=== PATIENT | male | born 1990 | race Hispanic/Latino ===

== ENCOUNTER 2020-05-31 00:21 | Emergency (ER) | payer SELFPAY ==
[~2020-05-31] VITALS: Ht 170.2 cm; Wt 87.1 kg
[2020-05-31] MEDS ORDERED: FAMOTIDINE 20 MG TAB PO STA (00:31)
[2020-05-31] MEDS ORDERED: PREDNISONE 20 MG TAB PO STA (00:31)
--- NOTE | 2020-05-31 00:33 | Emergency Department Note ---
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 Arrival Mode: Car Sock Mender Required: No Onset (how long ago): minute(s) (30) Radiation: Reports non-radiation Severity: mild Onset quality: sudden Duration (how long): hour(s) (1) Timing of current episode: constant Progression: unchanged Chronicity: new Relieving factors: none Exacerbating factors: none Associated symptoms: Reports denies other symptoms Treatments prior to arrival: none Past Medical/Family History Physician Review I have reviewed the patient's past medical and family history. Any updates have been documented here. Past Medical History Recent Fever: No Clinical Suspicion of Infectio: No New/Unexplained Change in Ment: No Past Medical History: Hypertension Past Surgical History: None Social History Smoking Cessation: Never Smoker Alcohol Use: None Any Illegal Drug Use: No Review of Systems Review of Systems Constitutional: Reports no symptoms EENTM: Reports no symptoms Cardiovascular: Reports no symptoms Respiratory: Reports no symptoms Gastrointestinal: Reports no symptoms Genitourinary: Reports no symptoms Musculoskeletal: Reports no symptoms Integumentary: Reports no symptoms Neurological: Reports tingling Psychological: Reports no symptoms Endocrine: Reports no symptoms Hematological/Lymphatic: Reports no symptoms Physical Exam Related Data Allergies: Coded Allergies: No Known Allergies (Unverified , 05/31/20) Physical Exam CONSTITUTIONAL Constitutional: Present well-developed, Present well-nourished HENT HENT: Present normocephalic, Present atraumatic, Present oropharynx keren r/moist, Present nose normal HENT L/R: Present left ext ear normal, Present right ext ear normal EYES Eyes: Reports PERRL, Reports conjunctivae normal NECK Neck: Present ROM normal PULMONARY Pulmonary: Present effort normal, Present breath sounds normal CARDIOVASCULAR Cardiovascular: Present regular rhythm, Present heart sounds normal, Present capillary refill normal, Present normal rate GASTROINTESTINAL Abdominal: Present soft, Present nontender, Present bowel sounds normal GENITOURINARY Genitourinary: Present exam deferred SKIN Skin: Present warm, Present dry MUSCULOSKELETAL Musculoskeletal: Present ROM normal NEUROLOGICAL Neurological: Present alert, Present oriented x 3, Present no gross motor or sensory deficits PSYCHOLOGICAL Psychological: Present mood/affect normal, Present judgement normal Assessment & Plan Medical Decision Making MDM Diff Dx : angioedema, allergic reaction Assessment & Plan Final Impression: (1) Allergic reaction Depart Disposition: HOME, SELF-CARE ELMA MCKEON DO May 31, 2020 00:33
[2020-05-31] MEDS ORDERED: DIPHENHYDRAMINE HCL 25 MG CAP PO ONE (00:45)
--- NOTE | 2020-05-31 01:45 | NUR ---
PT STATES TINGLING IN TONGUE AND FACE HAVE DECREASED. NAD NOTED AT THIS TIME. RESP EVEN/UNLABORED.
[2020-05-31 02:15] VITALS: BP 125/79
--- OUTSIDE RECORDS SUMMARY | 2020-05-31 02:21 | XMS REPORT | Continuity of Care Document ---
Author Author [facility] t Organization [facility] Address [address] [place] [address] Phone Unavailable Care Team Providers Care Mobile Homes Repairer Name Role Phone Unavailable Unavailable Payers Payer Name Policy Type Policy Number Effective Date Expiration Date S ource Problems This patient has no known problems. Allergies, Adverse Reactions, Alerts Allergy Name Allergy Type Status Severity Reaction(s) Onset Date Inacti ve Date Treating Clinician Comments Source No Known Allergies DA Active U 2020-05-30 00:00:00 [facility] No Known Allergies DA Active U 2020-05-24 00:00:00 [facility] No Known Allergies DA Active U 2020-05-21 00:00:00 [facility] No Known Allergies DA Active U 2020-05-20 00:00:00 [facility] Medications This patient has no known medications. Procedures This patient has no known procedures. Encounters Start Date/Time End Date/Time Encounter Type Admission Type [facility] Care Department Encounter ID Source 2020-05-29 02:17:00 2020-05-29 02:17:00 Emergency E [facility] [id number] [facility] 2020-05-28 17:59:00 2020-05-28 17:59:00 Emergency E [facility]SE [facility] [id number] [facility] 2020-05-25 01:40:00 2020-05-25 01:40:00 Emergency E [facility]SE [facility]SE [id number] [facility] 2020-05-23 01:20:00 2020-05-23 01:20:00 Emergency E [facility]SE [facility]SE [id number] [facility] 2020-05-22 01:00:00 2020-05-22 01:00:00 Emergency E [facility]SE [facility]SE [id number] [facility] 2020-05-19 17:53:00 2020-05-19 17:53:00 Emergency E MHSE [facility]SE [id number] [facility] 2020-05-18 19:03:00 2020-05-18 19:03:00 Emergency E [facility]SE [facility]SE [id number] [facility] 2020-05-17 20:10:00 2020-05-17 20:10:00 Emergency E MHSE [facility]SE [id number] [facility] 2020-05-16 23:43:00 2020-05-16 23:43:00 Emergency E MHSE [facility]SE [id number] [facility] 2020-05-14 01:59:00 2020-05-14 01:59:00 Emergency E MHSE [facility]SE [id number] [facility] 2020-04-30 10:21:00 2020-04-30 10:21:00 Emergency E [facility]SE [facility]SE [id number] [facility] 2020-04-22 01:29:00 2020-04-22 01:29:00 Emergency E [facility]SE SE [id number] [facility] Results Test Description Test Time Test Comments Results Result Comments Source BASIC METABOLIC PANEL 2020-05-23 22:35:00 Test Item SODIUM (test code = NA) 142 mmol/L 136-145 N POTASSIUM (test code = K) 3.7 mmol/L 3.5-5.1 N CHLORIDE (test code = CL) 111.0 mmol/L 98-107 H CARBON DIOXIDE (test code = CO2) 26.0 mmol/L 21-32 N ANION GAP (test code = GAP) 8.7 10-20 L GLUCOSE (test code = GLU) 100 mg/dL 74-106 N BLOOD UREA NITROGEN (test code = BUN) 11 mg/dL 7-18 N GLOMERULAR FILTRATION RATE (test code = GFR) > 60 mL/min >=60 Estimated GFR by using Modified MDRD formula.Chronic kidney disease is defined as either kidney damageor GFR <60 mL/min/1.73 m2 for >3 months. CREATININE (test code = CREAT) 1.10 mg/dL 0.7-1.3 N BUN/CREATININE RATIO (test code = BUN/CREA) 10.1 10-20 N CALCIUM (test code = CA) 8.8 mg/dL 8.5-10.1 N HEPATIC FUNCTION [id number] 22:35:00* Test Item Value Reference Range Interpretation Comments TOTAL PROTEIN (test code = PROT) 7.4 gram/dL 6.4-8.2 N ALBUMIN (test code = ALB) 3.3 g/dL 3.4-5.0 L GLOBULIN (test code = GLOB) 4.1 gram/dL 2.7-4.2 N ALBUMIN/GLOBULIN RATIO (test code = A/G) 0.8 0.75-1.50 N BILIRUBIN TOTAL (test code = BILT) 0.60 mg/dL 0.0-1.0 N BILIRUBIN DIRECT (test code = BILD) 0.14 mg/dL 0.0-0.20 N SGOT/AST (test code = AST) 30 IUnit/L 15-37 N SGPT/ALT (test code = ALT) 79 IUnit/L 12-78 H ALKALINE PHOSPHATASE TOTAL (test code = ALKP) 72 IUnit/L 45-117 N Note change in reference range due to change in reagent. [id number] 22:35:00* Test Item Value Reference Range Interpretation Comments LIPASE (test code = LIP) 189 U/L 73.0-393.0 N BASIC METABOLIC [id number] 22:25:00* Test Item Value Reference Range Interpretation Comments SODIUM (test code = NA) 142 mmol/L 136-145 N POTASSIUM (test code = K) 3.7 mmol/L 3.5-5.1 N CHLORIDE (test code = CL) 111.0 mmol/L 98-107 H CARBON DIOXIDE (test code = CO2) mmol/L 21-32 ANION GAP (test code = GAP) 10-20 GLUCOSE (test code = GLU) mg/dL 74-106 BLOOD UREA NITROGEN (test code = BUN) mg/dL 7-18 GLOMERULAR FILTRATION RATE (test code = GFR) mL/min >=60 CREATININE (test code = CREAT) mg/dL 0.7-1.3 BUN/CREATININE RATIO (test code = BUN/CREA) 10-20 CALCIUM (test code = CA) mg/dL 8.5-10.1 HEPATIC FUNCTION [id number] 22:25:00* Test Item Value Reference Range Interpretation Comments TOTAL PROTEIN (test code = PROT) gram/dL 6.4-8.2 ALBUMIN (test code = ALB) g/dL 3.4-5.0 GLOBULIN (test code = GLOB) gram/dL 2.7-4.2 ALBUMIN/GLOBULIN RATIO (test code = A/G) 0.75-1.50 BILIRUBIN TOTAL (test code = BILT) mg/dL 0.0-1.0 BILIRUBIN DIRECT (test code = BILD) mg/dL 0.0-0.20 SGOT/AST (test code = AST) IUnit/L 15-37 SGPT/ALT (test code = ALT) IUnit/L 12-78 ALKALINE PHOSPHATASE TOTAL (test code = ALKP) IUnit/L 45-117 [id number] 22:25:00* Test Item Value Reference Range Interpretation Comments LIPASE (test code = LIP) U/L 73.0-393.0 CBC W/O [id number] 22:09:00* Test Item Value Reference Range Interpretation Comments WHITE BLOOD CELL (test code = WBC) K/mm3 4.5-12.5 RED BLOOD CELL (test code = RBC) mill/mm3 4.0-5.8 HEMOGLOBIN (test code = HGB) 14.2 gram/dL 13.0-17.5 N HEMATOCRIT (test code = HCT) % 42.0-52.0 MEAN CELL VOLUME (test code = MCV) fL 80-98 MEAN CELL HGB (test code = MCH) picogram 27.0-33.0 MEAN CELL HGB CONCETRATION (test code = MCHC) gram/dL 33.0-36. 0 RED CELL DISTRIBUTION WIDTH (test code = RDW) % 11.6-16. 2 PLATELET COUNT (test code = PLT) 200 K/mm3 150-450 N MEAN PLATELET VOLUME (test code = MPV) fL 6.7-11.0 CBC W/O [id number] 22:09:00* Test Item Value Reference Range Interpretation Comments WHITE BLOOD CELL (test code = WBC) 5.8 K/mm3 4.5-12.5 N RED BLOOD CELL (test code = RBC) 4.62 mill/mm3 4.0-5.8 N HEMOGLOBIN (test code = HGB) 14.2 gram/dL 13.0-17.5 N HEMATOCRIT (test code = HCT) 40.3 % 42.0-52.0 L MEAN CELL VOLUME (test code = MCV) 87.2 fL 80-98 N MEAN CELL HGB (test code = MCH) 30.7 picogram 27.0-33.0 N MEAN CELL HGB CONCETRATION (test code = MCHC) 35.2 gram/dL 33.0-36. 0 N RED CELL DISTRIBUTION WIDTH (test code = RDW) 12.4 % 11.6-16. 2 N PLATELET COUNT (test code = PLT) 200 K/mm3 150-450 N MEAN PLATELET VOLUME (test code = MPV) 11.7 fL 6.7-11.0 H - CT ABD PELVIS [id number] 22:05:00 Name: SANYA KABA [facility] : 1990 Age/S: 29 / M [address] [facility] Unit #: [id number] Loc: [place] [address] Phys: Brian Page MD Acct: [id number] Dis Date: Status: REG ER PHONE #: [phone] Exam Date: 05/23/2020 2200 FAX #: [phone] Reason: abd pain and bloating after endoscopy EXAMS: CPT CODE: [id number] CT ABD PELVIS W/CONT 94220 REASON FOR EXAM: abd pain and bloating after endoscopy EXAM ORDER DATE: 05/23/2020 9:36 PM Ordering: Brian Page MD Attending:Brian Page MD Location:[facility] PROCEDURE: - CT ABD PELVIS W/CONT COMPARISON: FINDINGS: CT images of the abdomen and pelvis were obtained with IV and without oral contrast at 5mm. Dose modulation, iterative reconstruction, and/or weight based adjustment of the MA/KV was utilized to reduce the radiation dose to as low as reasonably achievable. Intravenous contrast: 100cc of Omnipaque 370. The liver, spleen, pancreas are grossly within normal limits. The gallbladder is unremarkable by CT The kidneys are within normal limits. The urinary bladder is minimally distended The colon and small bowel are within normal limits without evidence of obstruction. Minimal calcification of a normal caliber appendix, a nonspecific finding suggestive of appendicolith. No evidence of associated inflammation benavides ggest acute appendicitis No evidence of free air or free fluid. IMPRESSION: Nonspecific minimal distention of the stomach with food debris. No evidence of bowel dilatation, free air, or free fluid at 2205 Reported and signed by: Khadar Ovalle M.D. PAGE 1 Signed Report (CONTINUED) Name: SANYA KABA [facility] : 1990 Age/S: 29 / M [address] Unit #: [id number] Loc: [place] [address] Phys: Brian Page MD Acct: [id number] Dis Date: Status: REG ER PHONE #: [phone] Exam Date: 05/23/20202199 FAX #: [phone] Reason: abd pain and bloating after endoscopy EXAMS: CPT CODE: [id number] CT ABD PELVIS W/CONT 30848 <Continued> CC: Brian Pgae MD Technologist:Chey Kaye RT(R); SAMIR Cotton CTDI: DLP: Trnscb Date/Time: 05/23/2020 (2204) [email or web address] Orig Print D/T: S: 05/23/2020 (2207) PAGE 2 Signed Report - XR CHEST 1 [id number] 21:37:00 FAX: Brian England [phone] [place]: St: REG Name: SANYA MONTAGUE [facility] : [birth year] Age/S: 29/M [address] Unit #: [id number] Loc: [place] [address] Phys: Brian Page MD Acct: [id number] Dis Date: Status: REG ER PHONE #: [phone] Exam Date: 05/23/20202134 FAX #: [phone] Reason: ABDOMINAL PAIN EXAMS: CPT CODE: [id number] XR CHEST 1 V 62143 REASON FOR EXAM: ABDOMINAL PAIN EXAM ORDER DATE: 05/23/2020 9:16 PM Ordering: Paris Page MD Attending:Brian Page MD Location:[facility] PROCEDURE: - XR CHEST 1 V COMPARISON: F INDINGS: Portable AP frontal view of the chest obtained at 9:30 PM shows clear lungs without evidence of consolidation. There is no evidence of eff usion. The heart size is within normal limits. Pulmonary vasculatures are unremarkable. IMPRESSION: No active disease. Electr onically Signed by Zhen Ovalle on 05/23/2020 at 2136 Re ported and signed by: Khadar Ovalle M.D. CC: Brian Page Technologist: [facility] Date/Time/By: 05/23/2020 (2136) : By: CaitlynVTL Orig Print D/T: S: 05/23/2020 (2139) PAGE 1 Signed Report BASIC METABOLIC [id number] 22:01:00* Test Item Value Reference Range Interpretation Comments SODIUM (test code = NA) 141 mmol/L 136-145 N POTASSIUM (test code = K) 3.6 mmol/L 3.5-5.1 N CHLORIDE (test code = CL) 109.0 mmol/L 98-107 H CARBON DIOXIDE (test code = CO2) 25.0 mmol/L 21-32 N ANION GAP (test code = GAP) 10.6 10-20 N GLUCOSE (test code = GLU) 103 mg/dL 74-106 N BLOOD UREA NITROGEN (test code = BUN) 10 mg/dL 7-18 N GLOMERULAR FILTRATION RATE (test code = GFR) > 60 mL/min >=60 Estimated GFR by using Modified MDRD formula.Chronic kidney disease is defined as either kidney damageor GFR <60 mL/min/1.73 m2 for >3 months. CREATININE (test code = CREAT) 0.90 mg/dL 0.7-1.3 N BUN/CREATININE RATIO (test code = BUN/CREA) 10.7 10-20 N CALCIUM (test code = CA) 8.5 mg/dL 8.5-10.1 N HEPATIC FUNCTION [id number] 22:01:00* Test Item Value Reference Range Interpretation Comments TOTAL PROTEIN (test code = PROT) 7.3 gram/dL 6.4-8.2 N ALBUMIN (test code = ALB) 3.3 g/dL 3.4-5.0 L GLOBULIN (test code = GLOB) 4.0 gram/dL 2.7-4.2 N ALBUMIN/GLOBULIN RATIO (test code = A/G) 0.8 0.75-1.50 N BILIRUBIN TOTAL (test code = BILT) 0.60 mg/dL 0.0-1.0 N BILIRUBIN DIRECT (test code = BILD) 0.12 mg/dL 0.0-0.20 N SGOT/AST (test code = AST) 28 IUnit/L 15-37 N SGPT/ALT (test code = ALT) 72 IUnit/L 12-78 N ALKALINE PHOSPHATASE TOTAL (test code = ALKP) 74 IUnit/L 45-117 N Note change in reference range due to change in reagent. [id number] 22:01:00* Test Item Value Reference Range Interpretation Comments LIPASE (test code = LIP) 167 U/L 73.0-393.0 N BASIC METABOLIC [id number] 21:54:00* Test Item Value Reference Range Interpretation Comments SODIUM (test code = NA) 141 mmol/L 136-145 N POTASSIUM (test code = K) 3.6 mmol/L 3.5-5.1 N CHLORIDE (test code = CL) 109.0 mmol/L 98-107 H CARBON DIOXIDE (test code = CO2) mmol/L 21-32 ANION GAP (test code = GAP) 10-20 GLUCOSE (test code = GLU) mg/dL 74-106 BLOOD UREA NITROGEN (test code = BUN) mg/dL 7-18 GLOMERULAR FILTRATION RATE (test code = GFR) mL/min >=60 CREATININE (test code = CREAT) mg/dL 0.7-1.3 BUN/CREATININE RATIO (test code = BUN/CREA) 10-20 CALCIUM (test code = CA) mg/dL 8.5-10.1 HEPATIC FUNCTION [id number] 21:54:00* Test Item Value Reference Range Interpretation Comments TOTAL PROTEIN (test code = PROT) gram/dL 6.4-8.2 ALBUMIN (test code = ALB) g/dL 3.4-5.0 GLOBULIN (test code = GLOB) gram/dL 2.7-4.2 ALBUMIN/GLOBULIN RATIO (test code = A/G) 0.75-1.50 BILIRUBIN TOTAL (test code = BILT) mg/dL 0.0-1.0 BILIRUBIN DIRECT (test code = BILD) mg/dL 0.0-0.20 SGOT/AST (test code = AST) IUnit/L 15-37 SGPT/ALT (test code = ALT) IUnit/L 12-78 ALKALINE PHOSPHATASE TOTAL (test code = ALKP) IUnit/L 45-117 [id number] 21:54:00* Test Item Value Reference Range Interpretation Comments LIPASE (test code = LIP) U/L 73.0-393.0 CBC W/O [id number] 21:51:00* Test Item Value Reference Range Interpretation Comments WHITE BLOOD CELL (test code = WBC) 6.2 K/mm3 4.5-12.5 N RED BLOOD CELL (test code = RBC) 4.49 mill/mm3 4.0-5.8 N HEMOGLOBIN (test code = HGB) 13.8 gram/dL 13.0-17.5 N HEMATOCRIT (test code = HCT) 39.3 % 42.0-52.0 L MEAN CELL VOLUME (test code = MCV) 87.5 fL 80-98 N MEAN CELL HGB (test code = MCH) 30.7 picogram 27.0-33.0 N MEAN CELL HGB CONCETRATION (test code = MCHC) 35.1 gram/dL 33.0-36. 0 N RED CELL DISTRIBUTION WIDTH (test code = RDW) 12.2 % 11.6-16. 2 N PLATELET COUNT (test code = PLT) 189 K/mm3 150-450 N MEAN PLATELET VOLUME (test code = MPV) 12.0 fL 6.7-11.0 H CBC W/O [id number] 21:49:00* Test Item Value Reference Range Interpretation Comments WHITE BLOOD CELL (test code = WBC) K/mm3 4.5-12.5 RED BLOOD CELL (test code = RBC) mill/mm3 4.0-5.8 HEMOGLOBIN (test code = HGB) 13.8 gram/dL 13.0-17.5 N HEMATOCRIT (test code = HCT) % 42.0-52.0 MEAN CELL VOLUME (test code = MCV) fL 80-98 MEAN CELL HGB (test code = MCH) picogram 27.0-33.0 MEAN CELL HGB CONCETRATION (test code = MCHC) gram/dL 33.0-36. 0 RED CELL DISTRIBUTION WIDTH (test code = RDW) % 11.6-16. 2 PLATELET COUNT (test code = PLT) 189 K/mm3 150-450 N MEAN PLATELET VOLUME (test code = MPV) fL 6.7-11.0 - CT HEAD/BRAIN W/O [id number] 13:44:00 Name: SANYA KABA [facility] : 1990 Age/S: 29 / M [address] [facility] Unit #: [id number] Loc: [place] [address] Phys: Sandrita Hernandez NP Acct: [id number] Dis Date: Status: REG ER PHONE #: [phone] Exam Date: 05/21/2020 1315 FAX #: [phone] Reason: headache, dizzines EXAMS: CPT CODE: [id number] CT HEAD/BRAIN W/O CONT 91279 HISTORY: headache, dizzines TECHNIQUE: Noncontrast 2.[address] of the head. Examination acquired within 24 hours of arrival. Automated exposure control for dose reduction. COMPARISON: None FINDINGS: No lacerations or contusions of the scalp or facial soft tissues. Calvarium and skull base are intact. No acute hemorrhage. No intracranial mass, mass effect, or midline shift. No effacement of the sulci or decker-white matter interface. No cortical atrophy. No signs of white matter small- vessel disease. No hydrocephalus.. No extra-axial fluid collection. Visualized paranasal sinuses are clear. Mastoid air cells and middle ear cavities are clear. Orbital contents are unremarkable. IMPRESSION: Negative CT head. Location: [facility] at 1344 Reported and signed by: Carlos Stoner MD CC: Sandrita Hernandez NP Technologist:Clementina Palomino RT(R),CT CTDI: DLP: Trnscb Date/Time: 05/21/2020 (1344) [email or web address] Orig Print D/T: S: 05/21/2020 (3865) PAGE 1 Signed Report COMPREHENSIVE METABOLIC [id number] 13:34:00* Test Item Value Reference Range Interpretation Comments SODIUM (test code = NA) 139 mmol/L 136-145 N POTASSIUM (test code = K) 3.9 mmol/L 3.5-5.1 N CHLORIDE (test code = CL) 108.0 mmol/L 98-107 H CARBON DIOXIDE (test code = CO2) 25.0 mmol/L 21-32 N ANION GAP (test code = GAP) 9.9 10-20 L GLUCOSE (test code = GLU) 157 mg/dL 74-106 H BLOOD UREA NITROGEN (test code = BUN) 10 mg/dL 7-18 N GLOMERULAR FILTRATION RATE (test code = GFR) > 60 mL/min >=60 Estimated GFR by using Modified MDRD formula.Chronic kidney disease is defined as either kidney damageor GFR <60 mL/min/1.73 m2 for >3 months. CREATININE (test code = CREAT) 1.00 mg/dL 0.7-1.3 N BUN/CREATININE RATIO (test code = BUN/CREA) 10.3 10-20 N TOTAL PROTEIN (test code = PROT) 7.3 gram/dL 6.4-8.2 N ALBUMIN (test code = ALB) 3.2 g/dL 3.4-5.0 L GLOBULIN (test code = GLOB) 4.1 gram/dL 2.7-4.2 N ALBUMIN/GLOBULIN RATIO (test code = A/G) 0.8 0.75-1.50 N CALCIUM (test code = CA) 8.7 mg/dL 8.5-10.1 N BILIRUBIN TOTAL (test code = BILT) 0.70 mg/dL 0.0-1.0 N SGOT/AST (test code = AST) 32 IUnit/L 15-37 N SGPT/ALT (test code = ALT) 84 IUnit/L 12-78 H ALKALINE PHOSPHATASE TOTAL (test code = ALKP) 73 IUnit/L 45-117 N Note change in reference range due to change in reagent. COMPREHENSIVE METABOLIC [id number] 13:26:00* Test Item Value Reference Range Interpretation Comments SODIUM (test code = NA) 139 mmol/L 136-145 N POTASSIUM (test code = K) 3.9 mmol/L 3.5-5.1 N CHLORIDE (test code = CL) 108.0 mmol/L 98-107 H CARBON DIOXIDE (test code = CO2) mmol/L 21-32 ANION GAP (test code = GAP) 10-20 GLUCOSE (test code = GLU) mg/dL 74-106 BLOOD UREA NITROGEN (test code = BUN) mg/dL 7-18 GLOMERULAR FILTRATION RATE (test code = GFR) mL/min >=60 CREATININE (test code = CREAT) mg/dL 0.7-1.3 BUN/CREATININE RATIO (test code = BUN/CREA) 10-20 TOTAL PROTEIN (test code = PROT) gram/dL 6.4-8.2 ALBUMIN (test code = ALB) g/dL 3.4-5.0 GLOBULIN (test code = GLOB) gram/dL 2.7-4.2 ALBUMIN/GLOBULIN RATIO (test code = A/G) 0.75-1.50 CALCIUM (test code = CA) mg/dL 8.5-10.1 BILIRUBIN TOTAL (test code = BILT) mg/dL 0.0-1.0 SGOT/AST (test code = AST) IUnit/L 15-37 SGPT/ALT (test code = ALT) IUnit/L 12-78 ALKALINE PHOSPHATASE TOTAL (test code = ALKP) IUnit/L 45-117 CBC W/AUTO [id number] 13:15:00* Test Item Value Reference Range Interpretation Comments WHITE BLOOD CELL (test code = WBC) 4.7 K/mm3 4.5-12.5 N RED BLOOD CELL (test code = RBC) 4.80 mill/mm3 4.0-5.8 N HEMOGLOBIN (test code = HGB) 14.7 gram/dL 13.0-17.5 N HEMATOCRIT (test code = HCT) 42.3 % 42.0-52.0 N MEAN CELL VOLUME (test code = MCV) 88.1 fL 80-98 N MEAN CELL HGB (test code = MCH) 30.6 picogram 27.0-33.0 N MEAN CELL HGB CONCETRATION (test code = MCHC) 34.8 gram/dL 33.0-36. 0 N RED CELL DISTRIBUTION WIDTH (test code = RDW) 12.2 % 11.6-16. 2 N RED CELL DISTRIBUTION WIDTH SD (test code = RDW-SD) 39.2 fL 37 .0-51.0 N PLATELET COUNT (test code = PLT) 191 K/mm3 150-450 N MEAN PLATELET VOLUME (test code = MPV) 11.9 fL 6.7-11.0 H NEUTROPHIL % (test code = NT%) 55.9 % 39.0-69.0 N IMMATURE GRANULOCYTE % (test code = IG%) 0.2 % 0.0-5.0 N LYMPHOCYTE % (test code = LY%) 34.2 % 25.0-55.0 N MONOCYTE % (test code = MO%) 7.4 % 0.0-10.0 N EOSINOPHIL % (test code = EO%) 1.7 % 0.0-5.0 N BASOPHIL % (test code = BA%) 0.6 % 0.0-1.0 N NUCLEATED RBC % (test code = NRBC%) 0.0 % 0-0 N NEUTROPHIL # (test code = NT#) 2.63 K/mm3 1.8-7.7 N IMMATURE GRANULOCYTE # (test code = IG#) 0.01 x10 3/uL 0-0.03 N LYMPHOCYTE # (test code = LY#) 1.61 K/mm3 1.0-5.0 N MONOCYTE # (test code = MO#) 0.35 K/mm3 0-0.8 N EOSINOPHIL # (test code = EO#) 0.08 K/mm3 0.0-0.5 N BASOPHIL # (test code = BA#) 0.03 K/mm3 0.0-0.2 N NUCLEATED RBC # (test code = NRBC#) 0.00 K/mm3 0.0-0.1 N URINALYSIS [id number] 19:53:00* Test Item Value Reference Range Interpretation Comments UA COLOR (test code = COLU) STRAW YELLOW UA APPEARANCE (test code = APPU) CLEAR CLEAR UA GLUCOSE DIPSTICK (test code = DGLUU) NEGATIVE mg/dL NEGATIVE UA BILIRUBIN DIPSTICK (test code = BILU) NEGATIVE mg/dL NEGATIVE UA KETONE DIPSTICK (test code = KETU) NEGATIVE mg/dL NEGATIVE UA SPECIFIC GRAVITY (test code = SGU) 1.004 1.001-1.035 UA BLOOD DIPSTICK (test code = CARLOS) Negative mg/dL NEGATIVE UA PH DIPSTICK (test code = YOMAIRA) 6.0 5.0-8.0 UA PROTEIN DIPSTICK (test code = PROU) NEGATIVE mg/dL NEGATIVE UA UROBILINIOGEN DIPSTICK (test code = URO) Normal mg/dL NEGATIVE UA NITRITE DIPSTICK (test code = ISRRAEL) NEGATIVE NEGATIVE UA LEUKOCYTE ESTERASE W REFLEX (test code = LEUUR) NEGATIVE Stephanie/uL NEGATIVE UA WBC (test code = WBCU) 0-5 per HPF 0-5 UA RBC (test code = RBCU) 0-2 #/HPF 0-5 UA EPITHELIAL CELLS (test code = EPIU) Rare (0-1/hpf) per HPF FEW UA BACTERIA (test code = BACU) NONE SEEN #/HPF NONE UA MUCUS (test code = MUCU) FEW #/LPF FEW Urine Source? Clean CatchDRUGS OF ABUSE SCREEN [id number] 19:53:00* Test Item Value Reference Range Interpretation Comments URN COCAINE (test code = COCAURN) NEGATIVE <300 ng/mL URN CANNABINOIDS (test code = CANNABURN) NEGATIVE <50 ng/mL URN AMPHETAMINE (test code = AMPHETURN) NEGATIVE <1000 ng/mL URN BARBITURATE (test code = BARBITURN) NEGATIVE <200 ng/mL URN BENZODIAZEPINE (test code = BENZOURN) NEGATIVE <200 ng/mL URN OPIATES (test code = OPIATURN) NEGATIVE <300 ng/mL URN PHENCYCLIDINE (PCP) (test code = PHENCURN) NEGATIVE <25 ng/ mL URN METHADONE (test code = METHAURN) NEGATIVE <300 ng/mL Urine Source? Clean CatchURINALYSIS [id number] 19:28:00* Test Item Value Reference Range Interpretation Comments UA COLOR (test code = COLU) STRAW YELLOW UA APPEARANCE (test code = APPU) CLEAR CLEAR UA GLUCOSE DIPSTICK (test code = DGLUU) NEGATIVE mg/dL NEGATIVE UA BILIRUBIN DIPSTICK (test code = BILU) NEGATIVE mg/dL NEGATIVE UA KETONE DIPSTICK (test code = KETU) NEGATIVE mg/dL NEGATIVE UA SPECIFIC GRAVITY (test code = SGU) 1.004 1.001-1.035 UA BLOOD DIPSTICK (test code = CARLOS) Negative mg/dL NEGATIVE UA PH DIPSTICK (test code = YOMAIRA) 6.0 5.0-8.0 UA PROTEIN DIPSTICK (test code = PROU) NEGATIVE mg/dL NEGATIVE UA UROBILINIOGEN DIPSTICK (test code = URO) Normal mg/dL NEGATIVE UA NITRITE DIPSTICK (test code = ISRRAEL) NEGATIVE NEGATIVE UA LEUKOCYTE ESTERASE W REFLEX (test code = LEUUR) NEGATIVE Stephanie/uL NEGATIVE UA WBC (test code = WBCU) 0-5 per HPF 0-5 UA RBC (test code = RBCU) 0-2 #/HPF 0-5 UA EPITHELIAL CELLS (test code = EPIU) Rare (0-1/hpf) per HPF FEW UA BACTERIA (test code = BACU) NONE SEEN #/HPF NONE UA MUCUS (test code = MUCU) FEW #/LPF FEW Urine Source? Clean CatchDRUGS OF ABUSE SCREEN [id number] 19:28:00* Test Item Value Reference Range Interpretation Comments URN COCAINE (test code = COCAURN) <300 ng/mL URN CANNABINOIDS (test code = CANNABURN) <50 ng/mL URN AMPHETAMINE (test code = AMPHETURN) <1000 ng/mL URN BARBITURATE (test code = BARBITURN) <200 ng/mL URN BENZODIAZEPINE (test code = BENZOURN) <200 ng/mL URN OPIATES (test code = OPIATURN) <300 ng/mL URN PHENCYCLIDINE (PCP) (test code = PHENCURN) <25 ng/ mL URN METHADONE (test code = METHAURN) <300 ng/mL Urine Source? Clean CatchURINALYSIS [id number] 19:26:00* Test Item Value Reference Range Interpretation Comments UA COLOR (test code = COLU) YELLOW UA APPEARANCE (test code = APPU) CLEAR CLEAR UA GLUCOSE DIPSTICK (test code = DGLUU) NEGATIVE mg/dL NEGATIVE UA BILIRUBIN DIPSTICK (test code = BILU) NEGATIVE mg/dL NEGATIVE UA KETONE DIPSTICK (test code = KETU) NEGATIVE mg/dL NEGATIVE UA SPECIFIC GRAVITY (test code = SGU) 1.004 1.001-1.035 UA BLOOD DIPSTICK (test code = CARLOS) Negative mg/dL NEGATIVE UA PH DIPSTICK (test code = YOMAIRA) 6.0 5.0-8.0 UA PROTEIN DIPSTICK (test code = PROU) NEGATIVE mg/dL NEGATIVE UA UROBILINIOGEN DIPSTICK (test code = URO) Normal mg/dL NEGATIVE UA NITRITE DIPSTICK (test code = ISRRAEL) NEGATIVE NEGATIVE UA LEUKOCYTE ESTERASE W REFLEX (test code = LEUUR) NEGATIVE Stephanie/uL NEGATIVE UA WBC (test code = WBCU) per HPF 0-5 UA RBC (test code = RBCU) per HPF 0-5 UA EPITHELIAL CELLS (test code = EPIU) per HPF Few UA BACTERIA (test code = BACU) per HPF NONE Urine Source? Clean CatchDRUGS OF ABUSE SCREEN [id number] 19:26:00* Test Item Value Reference Range Interpretation Comments URN COCAINE (test code = COCAURN) <300 ng/mL URN CANNABINOIDS (test code = CANNABURN) <50 ng/mL URN AMPHETAMINE (test code = AMPHETURN) <1000 ng/mL URN BARBITURATE (test code = BARBITURN) <200 ng/mL URN BENZODIAZEPINE (test code = BENZOURN) <200 ng/mL URN OPIATES (test code = OPIATURN) <300 ng/mL URN PHENCYCLIDINE (PCP) (test code = PHENCURN) <25 ng/ mL URN METHADONE (test code = METHAURN) <300 ng/mL Urine Source? Clean CatchBASIC METABOLIC [id number] 19:14:00* Test Item Value Reference Range Interpretation Comments SODIUM (test code = NA) 140 mmol/L 136-145 N POTASSIUM (test code = K) 4.0 mmol/L 3.5-5.1 N CHLORIDE (test code = CL) 109.0 mmol/L 98-107 H CARBON DIOXIDE (test code = CO2) 21.0 mmol/L 21-32 N ANION GAP (test code = GAP) 14.0 10-20 N GLUCOSE (test code = GLU) 104 mg/dL 74-106 N BLOOD UREA NITROGEN (test code = BUN) 11 mg/dL 7-18 N GLOMERULAR FILTRATION RATE (test code = GFR) > 60 mL/min >=60 Estimated GFR by using Modified MDRD formula.Chronic kidney disease is defined as either kidney damageor GFR <60 mL/min/1.73 m2 for >3 months. CREATININE (test code = CREAT) 0.80 mg/dL 0.7-1.3 N BUN/CREATININE RATIO (test code = BUN/CREA) 13.3 10-20 N CALCIUM (test code = CA) 8.8 mg/dL 8.5-10.1 N HEPATIC FUNCTION [id number] 19:14:00* Test Item Value Reference Range Interpretation Comments TOTAL PROTEIN (test code = PROT) 6.8 gram/dL 6.4-8.2 N ALBUMIN (test code = ALB) 3.2 g/dL 3.4-5.0 L GLOBULIN (test code = GLOB) 3.6 gram/dL 2.7-4.2 N ALBUMIN/GLOBULIN RATIO (test code = A/G) 0.9 0.75-1.50 N BILIRUBIN TOTAL (test code = BILT) 0.50 mg/dL 0.0-1.0 N BILIRUBIN DIRECT (test code = BILD) 0.12 mg/dL 0.0-0.20 N SGOT/AST (test code = AST) 32 IUnit/L 15-37 N SGPT/ALT (test code = ALT) 83 IUnit/L 12-78 H ALKALINE PHOSPHATASE TOTAL (test code = ALKP) 69 IUnit/L 45-117 N Note change in reference range due to change in reagent. [id number] 19:14:00* Test Item Value Reference Range Interpretation Comments LIPASE (test code = LIP) 177 U/L 73.0-393.0 N [id number] 19:14:00* Test Item Value Reference Range Interpretation Comments TROPONIN-I (test code = TROPI) <0.015 ng/mL 0-0.045 N BASIC METABOLIC [id number] 19:08:00* Test Item Value Reference Range Interpretation Comments SODIUM (test code = NA) 140 mmol/L 136-145 N POTASSIUM (test code = K) 4.0 mmol/L 3.5-5.1 N CHLORIDE (test code = CL) 109.0 mmol/L 98-107 H CARBON DIOXIDE (test code = CO2) mmol/L 21-32 ANION GAP (test code = GAP) 10-20 GLUCOSE (test code = GLU) mg/dL 74-106 BLOOD UREA NITROGEN (test code = BUN) mg/dL 7-18 GLOMERULAR FILTRATION RATE (test code = GFR) mL/min >=60 CREATININE (test code = CREAT) mg/dL 0.7-1.3 BUN/CREATININE RATIO (test code = BUN/CREA) 10-20 CALCIUM (test code = CA) mg/dL 8.5-10.1 HEPATIC FUNCTION [id number] 19:08:00* Test Item Value Reference Range Interpretation Comments TOTAL PROTEIN (test code = PROT) gram/dL 6.4-8.2 ALBUMIN (test code = ALB) g/dL 3.4-5.0 GLOBULIN (test code = GLOB) gram/dL 2.7-4.2 ALBUMIN/GLOBULIN RATIO (test code = A/G) 0.75-1.50 BILIRUBIN TOTAL (test code = BILT) mg/dL 0.0-1.0 BILIRUBIN DIRECT (test code = BILD) mg/dL 0.0-0.20 SGOT/AST (test code = AST) IUnit/L 15-37 SGPT/ALT (test code = ALT) IUnit/L 12-78 ALKALINE PHOSPHATASE TOTAL (test code = ALKP) IUnit/L 45-117 [id number] 19:08:00* Test Item Value Reference Range Interpretation Comments LIPASE (test code = LIP) U/L 73.0-393.0 [id number] 19:08:00* Test Item Value Reference Range Interpretation Comments TROPONIN-I (test code = TROPI) ng/mL 0-0.045 CBC W/O [id number] 18:52:00* Test Item Value Reference Range Interpretation Comments WHITE BLOOD CELL (test code = WBC) 7.0 K/mm3 4.5-12.5 N RED BLOOD CELL (test code = RBC) 4.72 mill/mm3 4.0-5.8 N HEMOGLOBIN (test code = HGB) 14.3 gram/dL 13.0-17.5 N HEMATOCRIT (test code = HCT) 40.5 % 42.0-52.0 L MEAN CELL VOLUME (test code = MCV) 85.8 fL 80-98 N MEAN CELL HGB (test code = MCH) 30.3 picogram 27.0-33.0 N MEAN CELL HGB CONCETRATION (test code = MCHC) 35.3 gram/dL 33.0-36. 0 N RED CELL DISTRIBUTION WIDTH (test code = RDW) 12.2 % 11.6-16. 2 N PLATELET COUNT (test code = PLT) 198 K/mm3 150-450 N MEAN PLATELET VOLUME (test code = MPV) 12.0 fL 6.7-11.0 H CBC W/O [id number] 18:49:00* Test Item Value Reference Range Interpretation Comments WHITE BLOOD CELL (test code = WBC) K/mm3 4.5-12.5 RED BLOOD CELL (test code = RBC) mill/mm3 4.0-5.8 HEMOGLOBIN (test code = HGB) 14.3 gram/dL 13.0-17.5 N HEMATOCRIT (test code = HCT) % 42.0-52.0 MEAN CELL VOLUME (test code = MCV) fL 80-98 MEAN CELL HGB (test code = MCH) picogram 27.0-33.0 MEAN CELL HGB CONCETRATION (test code = MCHC) gram/dL 33.0-36. 0 RED CELL DISTRIBUTION WIDTH (test code = RDW) % 11.6-16. 2 PLATELET COUNT (test code = PLT) 198 K/mm3 150-450 N MEAN PLATELET VOLUME (test code = MPV) fL 6.7-11.0 - US ABDOMEN [id number] 18:33:00 Name: SANYA KABA [facility] : 1990 Age/S: 29 / M [address] [facility] Unit #: [id number] Loc: [place] [address] Phys: Ascencion Whitney NP Acct: [id number] Dis Date: Status: REG ER PHONE #: [phone] Exam Date: 05/20/2020 181 FAX #: [phone] Reason: Abdominal Pain EXAMS: CPT CODE: [id number] US ABDOMEN LTD [id number] REASON FOR EXAM: Abdominal Pain EXAM ORDER DATE: 05/20/2020 5:36 PM Attending Zhen: Ascencion Whitney NP PROCEDURE: - US ABDOMEN LTD Technique: Grayscale and color Doppler images of the right-upper quadrant of the abdomen. Comparison: None FINDINGS: Aorta and IVC: Patent and grossly normal in caliber. Liver: Size: 18.7 cm craniocaudally Parenchyma and contour: Diffusely increased parenchymal echogenicity likely represent steatosis. There is focal sparing near the gallbladder fossa Cysts and/or masses: None. Intrahepatic bile ducts: No intrahepatic biliary ductal dilation Common bile duct: 2.1 mm in diameter. No echogenic filling defects in visualized duct. Gallbladder: Stones/sludge: No intraluminal stones or sludge. Wall: 2.4 mm in thickness. No disco ntinuity. No polyps. No pericholecystic fluid. No hyperemia. Sono graphic Calix's sign: Negative Portal vein: Portal vein caliber i s within normal limits. Portal vein is patent with hepatopetal flow. Pancreas: Incompletely visualized. However the visualized portions are grossly within normal limits. Right kidney: parenchyma echogenicity: Normal echogenicity size: 11.8 x 6.6 x 6.8 cm PAGE 1 Signed Report (CONTINUED) Name: SANYA HERNANDEZ [facility] : 1990 Age/S: 29 / M [address] [facility] Unit #: [id number] L oc: [place] [address] Phys: Ascencion Whitney NP Acct: [id number] Dis Date: Status: REG ER PHONE #: [phone] Exam Date: 05/20/2020 1815 FAX #: [phone] Li son: Abdominal Pain EXAMS: CPT CODE: [id number] ABDOMEN LTD 78007 <Continued> stones: none cysts/masses: none hydronephrosis: none Ascites/pleural effusions: None IMPRESSION: Hepatomegaly with hepatic steatosis. Focal sparing at the gallbladder fossa. Location: [facility] at 1833 Reported and signed by: Carlos Stoner MD CC: Ascencion Whitney NP Technologist: Enrico Soliman Trnscb Date/Time: 05/20/2020 (1832) [email or web address] Orig Print D/T: S: 05/20/2020 (1835) Probe: PAGE 2 Signed Report - XR CHEST 1 [id number] 18:06:00 FAX: Ascencion Whitney [phone] [place]: [address] St: REG Name: SANYA MONTAGUE [facility] : [birth year] Age/S: 29/M [address] [facility] Unit #: [id number] Loc: [place] [address] Phys: Ascencion Whitney NP Acct: [id number] Dis Date: Status: REG ER PHONE #: [phone] Exam Date: 05/20/20201748 FAX #: [phone] Reason: EPIGASTRIC PAIN EXAMS: CPT CODE: [id number] XR CHEST 1 V 80060 REASON FOR EXAM: EPIGASTRIC PAIN Exam Order Date: 05/20/2020 5:37 PM Ordering M .D.: Ascencion Whitney NP PROCEDURE: - XR CHEST 1 V COMPARISON: None FINDINGS: The lungs are clear. There is no pleural effusion or pneumothorax. Pulmonary vascularity is within no rmal limits. Cardiomediastinal silhouette is normal in size for [place]. The mediastinal contours are within normal limits. Musculoskeletal structures are within normal limits. The visualize d upper abdomen is within normal limits. IMPRESSION: No acute cardiopulmonary process. Location: [facility] at 1806 Reported and signed by: Carlos Stoner MD CC: Ascencion Whitney NP Technologist: TI LORENZ Trnscrd Date/Time/By: 05/20/2020 (180) : By: Jaren [email or web address] Orig Print D/T: S: 05/20/2020 (181) PAGE 1 Signed Report
== END 2020-05-31 02:05 | disposition home or self-care (01) ==
LOC: ER 00:33
DX: L29.9 Pruritus, unspecified (principal); T78.40XA Allergy, unspecified, initial encounter; I10 Essential (primary) hypertension
CPT/HCPCS: 99283; J7512

== ENCOUNTER 2020-05-31 20:16 | Emergency (ER) | payer SELFPAY ==
[~2020-05-31] VITALS: Ht 170.2 cm; Wt 87.1 kg
--- NOTE | 2020-05-31 20:27 | Emergency Department Note ---
History of Present Illnes History of Present Illness Chief Complaint: Eye, Ear, Nose, Throat, Dental History of Present Illness This is a 29 year old male returns to the ED for throat swelling at 1630 today with dyspnea. Patient started his Losartan today. . Historian: Patient Arrival Mode: Car Onset (how long ago): hour(s) (4) Severity: moderate Onset quality: sudden Duration (how long): hour(s) Timing of current episode: constant Progression: worsening Chronicity: new Context: Denies recent illness, Denies recent surgery, Denies recent immobilization, Denies recent travel, Denies trauma/injury, Denies new medications, Denies hx of DVT/PE, Denies non-compliance w/ medications, Denies other Relieving factors: none Exacerbating factors: none Associated symptoms: Reports shortness of breath Treatments prior to arrival: none Past Medical/Family History Physician Review I have reviewed the patient's past medical and family history. Any updates have been documented here. Past Medical History Recent Fever: No Clinical Suspicion of Infectio: No New/Unexplained Change in Ment: No Past Medical History: Hypertension, Diabetes, Hyperlipedemia Other Medical History: GASTRITIS Other Surgery: ABSCESS REMOVAL RT LEG Social History Smoking Cessation: Never Smoker Alcohol Use: None Any Illegal Drug Use: No Review of Systems Review of Systems Constitutional: Reports no symptoms EENTM: Reports no symptoms Cardiovascular: Reports no symptoms Respiratory: Reports dyspnea Gastrointestinal: Reports no symptoms Genitourinary: Reports no symptoms Musculoskeletal: Reports no symptoms Integumentary: Reports no symptoms Neurological: Reports no symptoms Psychological: Reports no symptoms Endocrine: Reports no symptoms Hematological/Lymphatic: Reports no symptoms Physical Exam Related Data Allergies: Coded Allergies: No Known Allergies (Unverified , 05/31/20) Triage Vital Signs Vital Signs Date Time Temp Pulse Resp B/P (MAP) Pulse Ox O2 Delivery O2 Flow Rate FiO2 05/31/20 20:24 98.2 76 18 132/78 99 Room Air Vital signs reviewed: Yes Physical Exam CONSTITUTIONAL Constitutional: Present well-developed, Present well-nourished HENT HENT: Present normocephalic, Present atraumatic, Present oropharynx clear/moist, Present nose normal HENT L/R: Present left ext ear normal, Present right ext ear normal EYES Eyes: Reports PERRL, Reports conjunctivae normal NECK Neck: Present ROM normal PULMONARY Pulmonary: Present effort normal, Present breath sounds normal CARDIOVASCULAR Cardiovascular: Present regular rhythm, Present heart sounds normal, Present capillary refill normal, Present normal rate GASTROINTESTINAL Abdominal: Present soft, Present nontender, Present bowel sounds normal GENITOURINARY Genitourinary: Present exam deferred SKIN Skin: Present warm, Present dry MUSCULOSKELETAL Musculoskeletal: Present ROM normal NEUROLOGICAL Neurological: Present alert, Present oriented x 3, Present no gross motor or sensory deficits PSYCHOLOGICAL Psychological: Present mood/affect normal, Present judgement normal Results Laboratory Lab results reviewed: Yes Critical Care Time Total Critical Care Time (min): 31 Critcal care necessary due to: respiratory failure Critcal care time spent by me: develop tx plan w patient/surrogate, examination of patient, obtaining hx from patient/surrogate, order/perform tx or interventions, pulse oximetry, re-evaluation of patient condition, review of old charts Assessment & Plan Medical Decision Making MDM Diff dx : anxiety, angioedema, allergic reaction Reassessment Reassessment Improvement with 2 x epi IM. Patient states that throat swelling has subsided. Assessment & Plan Final Impression: (1) CRYSTAL inhibitor-aggravated angioedema Depart Disposition: HOME, SELF-CARE Last Vital Signs Date Time Temp Pulse Resp B/P (MAP) Pulse Ox O2 Delivery O2 Flow Rate FiO2 05/31/20 22:56 118/63 05/31/20 21:00 71 20 97 Room Air 05/31/20 20:24 98.2 Medications in the ED Epinephrine HCl 0.3 mg ONCE ONCE INJ Last administered on 05/31/20at 20:55; Admin Dose 0.3 MG; Start 05/31/20 at 20:30; Stop 05/31/20 at 20:31 Diphenhydramine HCl 25 mg ONCE PO Last administered on 05/31/20at 20:56; Admin Dose 25 MG; Start 05/31/20 at 20:30; Stop 05/31/20 at 21:59 Famotidine 20 mg ONCE PO Last administered on 05/31/20 20:55; Admin Dose 20 MG; Start 05/31/20 at 20:30; Stop 05/31/20 at 21:59 Prednisone 60 mg ONCE PO Last administered on 05/31/20at 20:58; Admin Dose 60 MG; Start 05/31/20 at 20:30; Stop 06/07/20 at 21:00 Epinephrine HCl 0.3 mg ONCE ONCE INJ Last administered on 05/31/20at 22:56; Admin Dose 0.3 MG; Start 05/31/20 at 22:45; Stop 05/31/20 at 22:46 ELMA MCKEON DO May 31, 2020 20:27
[2020-05-31] MEDS ORDERED: FAMOTIDINE 20 MG TAB PO NR (20:30)
[2020-05-31] MEDS ORDERED: DIPHENHYDRAMINE HCL 25 MG CAP PO NR (20:30)
[2020-05-31] MEDS ORDERED: EPINEPHRINE HCL 1:1000 1ML 1 MG/ML AMP INJ ONE ×2 (20:30→22:45)
[2020-05-31] MEDS ORDERED: PREDNISONE 20 MG TAB PO NR (20:30)
--- OUTSIDE RECORDS SUMMARY | 2020-05-31 20:55 | XMS REPORT | Continuity of Care Document ---
Author Author [facility] Organization [facility] Address [address] [place] [address] Phone Unavailable Care Team Providers Care Tailer In Name Role Phone NO, PCP PCP Unavailable Payers Payer Name Policy Type Policy Number Effective Date Expiration Date S ource Problems Condition Name Condition Details Condition Category Status Onset Date Resolution Date Last Treatment Date Treating Clinician Comments Source Problem Condition Active [facility] Allergies, Adverse Reactions, Alerts Allergy Name Allergy Type Status Severity Reaction(s) Onset Date Inacti ve Date Treating Clinician Comments Source No Known Allergies DA Active U 2020-05-30 00:00:00 [facility] No Known Allergies DA Active U 2020-05-24 00:00:00 [facility] No Known Allergies DA Active U 2020-05-21 00:00:00 [facility] No Known Allergies DA Active U 2020-05-20 00:00:00 [facility] Social History Social Habit Start Date Stop Date Quantity Comments Source Sex Assigned At 1990 00:00:00 1990 00:00:00 Male [facility] Medications This patient has no known medications. Vital Signs Vital Name Observation Time Observation Value Comments Source Weight 2020-05-31 00:27:00 192 [lb_av] [facility] BMI (Body Mass Index) 2020-05-31 00:27:00 30.1 kg/m2 [facility] Procedures This patient has no known procedures. Plan of Care Planned Activity Planned Date Details Comments Source Instructions Allergic Reaction [facility] Encounters Start Date/Time End Date/Time Encounter Type Admission Type [facility] Care Department Encounter ID Source 2020-05-31 00:33:00 2020-05-31 02:05:00 Departed Emergency [facility] [id number] [facility] Patients [facility] 2020-05-29 02:17:00 2020-05-29 02:17:00 Emergency E [id number] [facility] 2020-05-28 17:59:00 2020-05-28 17:59:00 Emergency E [facility] 7513 [facility] 2020-05-25 01:40:00 2020-05-25 01:40:00 Emergency E [facility]SE [facility] 7512 [facility] 2020-05-23 01:20:00 2020-05-23 01:20:00 Emergency E [facility]SE [facility] 7511 [facility] 2020-05-22 01:00:00 2020-05-22 01:00:00 Emergency E [facility]SE [facility] 7510 [facility] 2020-05-19 17:53:00 2020-05-19 17:53:00 Emergency E [facility]SE [facility]SE [id number] [facility] 2020-05-18 19:03:00 2020-05-18 19:03:00 Emergency E [facility]SE [facility] [id number] [facility] 2020-05-17 20:10:00 2020-05-17 20:10:00 Emergency E [facility]SE [facility] [id number] [facility] 2020-05-16 23:43:00 2020-05-16 23:43:00 Emergency E [facility]SE [facility] 7506 [facility] 2020-05-14 01:59:00 2020-05-14 01:59:00 Emergency E [facility]SE [facility]SE 7505 [facility] 2020-04-30 10:21:00 2020-04-30 10:21:00 Emergency E [facility]SE [facility] 7504 [facility] 2020-04-22 01:29:00 2020-04-22 01:29:00 Emergency E [facility]SE [facility] 7503 [facility] Results Test Description Test Time Test Comments [...] CA) 8.8 mg/dL 8.5-10.1 N HEPATIC FUNCTION [id number] 22:35:00* Test Item Value Reference Range Interpretation [...] reference range due to change in reagent. [id number] 22:35:00* Test Item Value Reference Range Interpretation Comments LIPASE (test code = LIP) 189 U/L 73.0-393.0 N BASIC METABOLIC [id number] 22:25:00* Test Item Value Reference Range Interpretation [...] code = CA) mg/dL 8.5-10.1 HEPATIC FUNCTION [id number] 22:25:00* Test Item Value Reference Range Interpretation [...] TOTAL (test code = ALKP) IUnit/L 45-117 [id number] 22:25:00* Test Item Value Reference Range Interpretation Comments LIPASE (test code = LIP) U/L 73.0-393.0 CBC W/O [id number] 22:09:00* Test Item Value Reference Range Interpretation [...] code = MPV) fL 6.7-11.0 CBC W/O [id number] 22:09:00* Test Item Value Reference Range Interpretation [...] fL 6.7-11.0 H - CT ABD PELVIS [id number] 22:05:00 Name: SENDYSANYA [facility] : 1990 Age/S: 29 / M [address] [facility] Unit #: [id number] Loc: [place] [address] Phys: Brian Page MD Acct: [id number] Dis Date: Status: REG ER PHONE #: [phone] Exam Date: 05/23/2020 2200 FAX #: [phone] Reason: abd pain and bloating after endoscopy EXAMS: CPT CODE: [id number] CT ABD PELVIS W/CONT 92806 REASON FOR EXAM: abd pain and bloating after endoscopy EXAM ORDER DATE: 05/23/2020 9:36 PM Ordering: Brian Page MD Attending:Brian Page MD Location:[facility] PROCEDURE: - CT ABD PELVIS W/CONT COMPARISON: FINDINGS: CT images of the abdomen and pelvis were obtained with IV and without oral contrast at 5mm. Dose modulation, iterative reconstruction, and/or weight based adjustment of the MA/KV was utilized to reduce the radiation dose to as low as reasonably a chievable. Intravenous contrast: 100cc of Omnipaque 370. The liver, spleen, pancreas are grossly within normal limits. Th e gallbladder is unremarkable by CT The kidneys are within normal limits. The urinary bladder is minimally distended The colo n and small bowel are within normal limits without evidence of obstruction . Minimal calcification of a normal caliber appendix, a nonspecific findi ng suggestive of appendicolith. No evidence of associated inflammation benavides ggest acute appendicitis No evidence of free air or free fluid. IMPRESSION: Nonspecific minimal distention of the stomach with laurie d debris. No evidence of bowel dilatation, free air, or free fluid at 2205 Reported and signed by: Khadar Ovalle M.D. PAGE 1 Signed Report (CONTINUED) Name: SANYA KABA [facility] : 1990 Age/S: 29 / M [address] [facility] Unit #: [id number] Loc: [place] [address] Phys: Brian Page MD Acct: [id number] Dis Date: Stat us: REG ER PHONE #: [phone] Exam Date: 05/23/20202199 FAX #: [phone] Reason: abd pain and bloating after endoscopy EXAMS: CPT CODE: [id number] CT ABD PELVIS W/CONT 12823 <Continued> CC: Brian Page MD Technologist:Chey Kaye RT(R); SAMIR Cotton CTDI: DLP: Trnscb Date/Time: 05/23/2020 (2204) t.[email or web address].[email or web address] Orig Print D/T: S: 05/23/2020 (2207) PAGE 2 Signed Report - XR CHEST 1 [id number] 21:37:00 FAX: Brian England [phone] [place]: St: REG Name: SANYA MONTAGUE [facility] : [birth year] Age/S: 29/M [address] [facility] Unit #: [id number] Loc: [place] [address] Phys: Brian Page Acct: [id number] Dis Date: Status: REG ER PHONE #: [phone] Exam Date: 05/23/20202134 FAX #: [phone] Reason: ABDOMINAL PAIN EXAMS: CPT CODE: [id number] XR CHEST 1 V 65902 REASON FOR EXAM: ABDOMINAL PAIN EXAM ORDER DATE: 05/23/2020 9:16 PM Ordering: Paris Page MD Attending:Brian Page MD Location:[facility] PROCEDURE: - XR CHEST 1 V COMPARISON: F INDINGS: Portable AP frontal view of the chest obtained at 9:30 PM shows clear lungs without evidence of consolidation. There is no evidence of eff usion. The heart size is within normal limits. Pulmonary vasculatures are unremarkable. IMPRESSION: No active disease. Electr onically Signed by Zhen Ovalle on 05/23/2020 at 213 Re ported and signed by: Khadar Ovalle M.D. CC: Brian Page Technologist: TI LORENZ Trnscrd Date/Time/By: 05/23/2020 (2136) : By: Aiden Orig Print D/T: S: 05/23/2020 (2139) PAGE 1 Signed Report BASIC METABOLIC [id number] 22:01:00* Test Item Value Reference Range Interpretation [...] CA) 8.5 mg/dL 8.5-10.1 N HEPATIC FUNCTION [id number] 22:01:00* Test Item Value Reference Range Interpretation [...] reference range due to change in reagent. [id number] 22:01:00* Test Item Value Reference Range Interpretation Comments LIPASE (test code = LIP) 167 U/L 73.0-393.0 N BASIC METABOLIC [id number] 21:54:00* Test Item Value Reference Range Interpretation [...] code = CA) mg/dL 8.5-10.1 HEPATIC FUNCTION [id number] 21:54:00* Test Item Value Reference Range Interpretation [...] TOTAL (test code = ALKP) IUnit/L 45-117 [id number] 21:54:00* Test Item Value Reference Range Interpretation Comments LIPASE (test code = LIP) U/L 73.0-393.0 CBC W/O [id number] 21:51:00* Test Item Value Reference Range Interpretation [...] MPV) 12.0 fL 6.7-11.0 H CBC W/O [id number] 21:49:00* Test Item Value Reference Range Interpretation [...] MPV) fL 6.7-11.0 - CT HEAD/BRAIN W/O [id number] 13:44:00 Name: SANYA KABA [facility] : 1990 Age/S: 29 / M [address] [facility] Unit #: [id number] Loc: [place] [address] Phys: Sandrita Hernandez NP Acct: [id number] Dis Date: Status: REG ER PHONE #: [phone] Exam Date: 05/21/2020 1315 FAX #: [phone] Reason: headache, dizzines EXAMS: CPT CODE: [id number] CT HEAD/BRAIN W/O CONT 79624 HISTORY: headache, dizzines TECHNIQUE: Noncontrast 2.[address] of the head. Examination acquired within 24 hours of arrival. Automated exposure control for dose reduction. COMPARISON: None FINDINGS: No lacerations or contusions of the scalp or facial soft tissues. Calvarium and skull base are intact. No acute hemorrhage. No intracranial mass, mass effect, or midline shift. No effacement of the sulci or decker- white matter interface. No cortical atrophy. No signs of white matter small-vessel disease. No hydrocephalus.. No extra-axial fluid collection. Visualized paranasal sinuses are clear. Mastoid air cells and middle ear cavities are clear. Orbital contents are unremarkable. IMPRESSION: Negative CT head. Location: [facility] at 1344 Reported and signed by: Carlos Stoner MD CC: Sandrita Hernandez NP Technologist:Clementina Palomino RT(R),CT CTDI: DLP: Trn scb Date/Time: 05/21/2020 (7547) t.SDR.RR31 Orig Print D/T : S: 05/21/2020 (7589) PAGE 1 Signed Report COMPREHENSIVE METABOLIC [id number] 13:34:00* Test Item Value Reference Range Interpretation [...] due to change in reagent. COMPREHENSIVE METABOLIC [id number] 13:26:00* Test Item Value Reference Range Interpretation [...] code = ALKP) IUnit/L 45-117 CBC W/AUTO [id number] 13:15:00* Test Item Value Reference Range Interpretation [...] = NRBC#) 0.00 K/mm3 0.0-0.1 N URINALYSIS [id number] 19:53:00* Test Item Value Reference Range Interpretation [...] Urine Source? Clean CatchDRUGS OF ABUSE SCREEN [id number] 19:53:00* Test Item Value Reference Range Interpretation [...] NEGATIVE <300 ng/mL Urine Source? Clean CatchURINALYSIS [id number] 19:28:00* Test Item Value Reference Range Interpretation [...] Urine Source? Clean CatchDRUGS OF ABUSE SCREEN [id number] 19:28:00* Test Item Value Reference Range Interpretation [...] [place]) <300 ng/mL Urine Source? Clean CatchURINALYSIS [id number] 19:26:00* Test Item Value Reference Range Interpretation [...] Urine Source? Clean CatchDRUGS OF ABUSE SCREEN [id number] 19:26:00* Test Item Value Reference Range Interpretation [...] <300 ng/mL Urine Source? Clean CatchBASIC METABOLIC [id number] 19:14:00* Test Item Value Reference Range Interpretation [...] CA) 8.8 mg/dL 8.5-10.1 N HEPATIC FUNCTION [id number] 19:14:00* Test Item Value Reference Range Interpretation [...] reference range due to change in reagent. [id number] 19:14:00* Test Item Value Reference Range Interpretation Comments LIPASE (test code = LIP) 177 U/L 73.0-393.0 N [id number] 19:14:00* Test Item Value Reference Range Interpretation Comments TROPONIN-I (test code = TROPI) <0.015 ng/mL 0-0.045 N BASIC METABOLIC [id number] 19:08:00* Test Item Value Reference Range Interpretation [...] code = CA) mg/dL 8.5-10.1 HEPATIC FUNCTION [id number] 19:08:00* Test Item Value Reference Range Interpretation [...] TOTAL (test code = ALKP) IUnit/L 45-117 [id number] 19:08:00* Test Item Value Reference Range Interpretation Comments LIPASE (test code = LIP) U/L 73.0-393.0 [id number] 19:08:00* Test Item Value Reference Range Interpretation Comments TROPONIN-I (test code = TROPI) ng/mL 0-0.045 CBC W/O [id number] 18:52:00* Test Item Value Reference Range Interpretation [...] MPV) 12.0 fL 6.7-11.0 H CBC W/O [id number] 18:49:00* Test Item Value Reference Range Interpretation [...] = MPV) fL 6.7-11.0 - US ABDOMEN [id number] 18:33:00 Name: SANYA KABA [facility] : 1990 Age/S: 29 / M [address] Unit #: [id number] Loc: [place] [address] Phys: Ascencion Whitney NP Acct: [id number] Dis Date: Status: REG ER PHONE #: [phone] Exam Date: 05/20/20201814 FAX #: [phone] Reason: Abdominal Pain EXAMS: CPT CODE: [id number] US ABDOMEN LTD 22903 REASON FOR EXAM: Abdominal Pain EXAM ORDER DATE: 05/20/2020 5:36 PM Attending MRichar: Ascencion Whitney NP PROCEDURE: - US ABDOMEN [...] are grossly within normal limits. Right kidney: parenchym a echogenicity: Normal echogenicity size: 11.8 x 6.6 x 6.8 cm PAGE 1 Signed Report (CONTINUED) Name: SANYA HERNANDEZ [facility] : 1990 Age/S: 29 / M [address] Unit #: [id number] L oc: [place] [address] Phys: Ascencion Whitney NP Acct: [id number] Dis Date: Status: REG ER PHONE #: [phone] Exam Date: 05/20/20201814 FAX #: [phone] Li son: Abdominal Pain EXAMS: CPT CODE: [id number] ABDOMEN LTD 89332 <Continued> stones: none cysts/masses: none hydronephrosis: none Ascites/pleural effusions: None IMPRESSION: Hepatomegaly with hepatic steatosis. Focal sparing at the gallbladder fossa. Location: [facility] at 1833 Reported and signed by: Carlos Stoner MD CC: Ascencion Whitney NP Technologist: Enrico Soliman Trnwvb Date/Time: 05/20/2020 (1832) [email or web address].RR31 Orig Print D/T: S: 05/20/2020 (1835) Probe: PAGE 2 Signed Report - XR CHEST 1 [id number] 18:06:00 FAX: Ascencion Whitney [phone] [place]: St: REG Name: SANYA MONTAGUE [facility] : [birth year] Age/S: 29/M [address] [facility] Unit #: [id number] Loc: [place] [address] Phys: Ascencion Whitney NP Acct: [id number] Dis Date: Status: REG ER PHONE #: [phone] Exam Date: 05/20/2020 174 FAX #: [phone] Reason: EPIGASTRIC PAIN EXAMS: CPT CODE: [id number] XR CHEST 1 V 75326 REASON FOR EXAM: EPIGASTRI C PAIN Exam Order Date: 05/20/2020 5:37 PM Ordering Toma Mcqueen: Ascencion Whitney NP PROCEDURE: - XR CHEST [...] limits. IMPRESSION: No acute cardiopulmonary process. Location: [facility] at 1806 Reported and signed by: Carlos Stoner MD CC: Ascencion Whitney NP Technologist: TI LORENZ Trnscrd Date/Time/By: 05/20/2020 (1806) : By: Jaren KingstonRR31 Orig Print D/T: S: 05/20/2020 (1810) PAGE 1 Signed Report
[2020-06-01 00:30] VITALS: BP 138/69
== END 2020-05-31 23:50 | disposition home or self-care (01) ==
LOC: ER 20:27
DX: T78.3XXA Angioneurotic edema, initial encounter (principal); T44.5X5A Adverse effect of predominantly beta-adrenoreceptor agonists, initial encounter; I10 Essential (primary) hypertension; E11.9 Type 2 diabetes mellitus without complications; E78.5 Hyperlipidemia, unspecified
CPT/HCPCS: 99283; J0171; J7512

== ENCOUNTER 2020-06-08 01:48 | Emergency (ER) | payer SELFPAY ==
[~2020-06-08] VITALS: Ht 170.2 cm; Wt 87.1 kg
--- NOTE | 2020-06-08 02:02 | Emergency Department Note ---
History of Present Illnes History of Present Illness Chief Complaint: Eye, Ear, Nose, Throat, Dental History of Present Illness This is a 29 year old male PRESENTS TO THE ER C/O TINGLING SENSATION IN MOUTH AND WEAKNESS ONSET THIS AFTERNOON AFTER GETTING OFF WORK AROUND 1600; PT STATES HE WAS TAKEN OFF LOSARTAN X2 DAYS AGO AND STARTED ON HCTZ BUT HAS NOT TAKEN MEDICATION YET D/T PHARMACY NOT FILLING MEDICATION; PT ALSO REPORTS HE STARTED SIMVISTATIN X2 DAYS AGO AND IRON TODAY; NO TONGUE SWELLING NOTED; PT DENIES CP OR SOB; PT TALKING IN COMPLETE SENTENCES;. STATES TONGUE HAS BEEN TINGLING FOR OVER A WEEK, THE GENERALIZED WEAKNESS STARTED AT 4 PM. Historian: Patient Arrival Mode: Car Onset (how long ago): day(s) (7) Location: TONGUE Quality: TINGLING, GENERALIZED WEAKNESS Radiation: Reports non-radiation Severity: mild Onset quality: gradual Duration (how long): day(s) (7) Timing of current episode: constant Progression: unchanged Chronicity: new Context: Reports new medications (SIMVASTATIN); Denies recent illness, Denies recent surgery, Denies trauma/injury Relieving factors: none Exacerbating factors: none Associated symptoms: Reports weakness Treatments prior to arrival: none Past Medical/Family History Physician Review I have reviewed the patient's past medical and family history. Any updates have been documented here. Past Medical History Recent Fever: No Clinical Suspicion of Infectio: No New/Unexplained Change in Ment: No Past Medical History: Hypertension, Hyperlipedemia Other Medical History: GASTRITIS IRON DEFICIENCY Past Surgical History: None Other Surgery: ABSCESS REMOVAL RT LEG Social History Smoking Cessation: Never Smoker Alcohol Use: None Any Illegal Drug Use: No Physically hurt or threatened: No Family History Family history of heart diseas: No Other Any Pre-Existing Lines (PICC,: No Review of Systems Review of Systems Constitutional: Reports no symptoms EENTM: Reports as per HPI Cardiovascular: Reports no symptoms Respiratory: Reports no symptoms Gastrointestinal: Reports no symptoms Genitourinary: Reports no symptoms Musculoskeletal: Reports no symptoms Integumentary: Reports no symptoms Neurological: Reports as per HPI Psychological: Reports no symptoms Endocrine: Reports no symptoms Hematological/Lymphatic: Reports no symptoms Physical Exam Related Data Allergies: Coded Allergies: No Known Allergies (Unverified , 05/31/20) Triage Vital Signs Vital Signs Date Time Temp Pulse Resp B/P (MAP) Pulse Ox O2 Delivery O2 Flow Rate FiO2 06/08/20 01:48 97.9 62 18 153/111 100 Room Air Vital signs reviewed: Yes Physical Exam CONSTITUTIONAL Constitutional: Present well-developed, Present well-nourished; Absent distressed HENT HENT: Present normocephalic, Present atraumatic, Present oropharynx clear/moist, Present nose normal HENT L/R: Present left ext ear normal, Present right ext ear normal EYES Eyes: Reports PERRL, Reports conjunctivae normal NECK Neck: Present ROM normal PULMONARY Pulmonary: Present effort normal, Present breath sounds normal CARDIOVASCULAR Cardiovascular: Present regular rhythm, Present heart sounds normal, Present capillary refill normal, Present normal rate GASTROINTESTINAL Abdominal: Present soft, Present nontender, Present bowel sounds normal GENITOURINARY Genitourinary: Present exam deferred SKIN Skin: Present warm, Present dry MUSCULOSKELETAL Musculoskeletal: Present ROM normal NEUROLOGICAL Neurological: Present alert, Present oriented x 3, Present no gross motor or sensory deficits PSYCHOLOGICAL Psychological: Present mood/affect normal, Present judgement normal Results Laboratory Laboratory Laboratory Tests Test 06/08/20 01:58 White Blood Count 7.61 x10e3/uL (4.8-10.8) Red Blood Count 4.71 x10e6/uL (4.3-5.7) Hemoglobin 14.1 g/dL (14.0-18.0) Hematocrit 40.6 % (38.2-49.6) Mean Corpuscular Volume 86.2 fL (81-99) Mean Corpuscular Hemoglobin 29.9 pg (28-32) Mean Corpuscular Hemoglobin Concent 34.7 g/dL (31-35) Red Cell Distribution Width 12.5 % (11.7-14.4) Platelet Count 208 x10e3/uL (140-360) Neutrophils (%) (Auto) 46.5 % (38.7-80.0) Lymphocytes (%) (Auto) 43.8 % (18.0-39.1) Monocytes (%) (Auto) 6.3 % (4.4-11.3) Eosinophils (%) (Auto) 2.4 % (0.0-6.0) Basophils (%) (Auto) 0.5 % (0.0-1.0) Neutrophils # (Auto) 3.5 (2.1-6.9) Lymphocytes # (Auto) 3.3 (1.0-3.2) Monocytes # (Auto) 0.5 (0.2-0.8) Eosinophils # (Auto) 0.2 (0.0-0.4) Basophils # (Auto) 0.0 (0.0-0.1) Absolute Immature Granulocyte (auto 0.04 x10e3/uL (0-0.1) Sodium Level 142 mmol/L (136-145) Potassium Level 3.6 mmol/L (3.5-5.1) Chloride Level 110 mmol/L (98-107) Carbon Dioxide Level 19 mmol/L (22-29) Anion Gap 16.6 mmol/L (8-16) Blood Urea Nitrogen 17 mg/dL (7-26) Creatinine 0.94 mg/dL (0.72-1.25) Estimat Glomerular Filtration Rate > 60 ML/MIN (60-) BUN/Creatinine Ratio 18 (6-25) Glucose Level 104 mg/dL (74-118) Calcium Level 8.6 mg/dL (8.4-10.2) Magnesium Level 2.1 MG/DL (1.3-2.1) Total Bilirubin 0.6 mg/dL (0.2-1.2) Aspartate Amino Transf (AST/SGOT) 19 IU/L (5-34) Alanine Aminotransferase (ALT/SGPT) 40 IU/L (0-55) Alkaline Phosphatase 75 IU/L (40-150) Creatine Kinase 143 IU/L (30-200) Creatine Kinase MB < 1.00 ng/mL (0-4.3) Troponin I < 0.05 ng/mL (0.0-0.40) Total Protein 7.0 g/dL (6.5-8.1) Albumin 4.1 g/dL (3.5-5.0) Globulin 2.9 g/dL (2.3-3.5) Albumin/Globulin Ratio 1.4 (0.8-2.0) Lab results reviewed: Yes Assessment & Plan Medical Decision Making MDM PT WITH TINGLING TO TONGUE FOR 1 WEEK, ALSO WITH GENERALIZED WEAKNESS TODAY CBC, CMP, CARDIAC ENZYMES ORDERED TO EVAL FOR ANEMIA, ELECTROLYTE ABNORMALITY, RHABDOMYOLYSIS Assessment & Plan Final Impression: (1) Weakness Depart Disposition: HOME, SELF-CARE Last Vital Signs Date Time Temp Pulse Resp B/P (MAP) Pulse Ox O2 Delivery O2 Flow Rate FiO2 06/08/20 01:48 97.9 62 18 153/111 100 Room Air ANGIE GARY MD Jun 08, 2020 02:02
[2020-06-08 02:05] LABS: BASOPHILS % 0.5 % (0.0-1.0); EOSINOPHILS # (AUTO) 0.2 (0.0-0.4); EOSINOPHILS % 2.4 % (0.0-6.0); HEMATOCRIT 40.6 % (38.2-49.6); HEMOGLOBIN 14.1 g/dL (14.0-18.0); LYMPHOCYTES # (AUTO) 3.3 (1.0-3.2); LYMPHOCYTES % 43.8 % (18.0-39.1); MEAN CORPUSCULAR HEMOGLOBIN 29.9 pg (28-32); MEAN CORPUSCULAR HGB CONC 34.7 g/dL (31-35); MEAN CORPUSCULAR VOLUME 86.2 fL (81-99); MONOCYTES # (AUTO) 0.5 (0.2-0.8); MONOCYTES % 6.3 % (4.4-11.3); NEUTROPHILS # (AUTO) 3.5 (2.1-6.9); NEUTROPHILS % 46.5 % (38.7-80.0); PLATELET COUNT 208 x10e3/uL (140-360); RED BLOOD COUNT 4.71 x10e6/uL (4.3-5.7); RED CELL DISTRIBUTION WIDTH 12.5 % (11.7-14.4)
[2020-06-08 02:17] LABS: ALBUMIN 4.1 g/dL (3.5-5.0)
[2020-06-08 02:22] LABS: CREATINE KINASE MB < 1.00 ng/mL (0-4.3)
[2020-06-08 02:24] LABS: ALANINE AMINOTRANSFERASE 40 IU/L (0-55); ALBUMIN/GLOBULIN RATIO 1.4 (0.8-2.0); ALKALINE PHOSPHATASE 75 IU/L (40-150); ANION GAP 16.6 mmol/L (8-16); BLOOD UREA NITROGEN 17 mg/dL (7-26); BUN/CREATININE RATIO 18 (6-25); CALCIUM 8.6 mg/dL (8.4-10.2); CARBON DIOXIDE 19 mmol/L (22-29); CHLORIDE 110 mmol/L (98-107); CREATINE KINASE 143 IU/L (30-200); CREATININE, SERUM 0.94 mg/dL (0.72-1.25); EST GLOMERULAR FILTRATION RATE > 60 ML/MIN (60-); GLUCOSE 104 mg/dL (74-118); POTASSIUM 3.6 mmol/L (3.5-5.1); SODIUM 142 mmol/L (136-145)
--- OUTSIDE RECORDS SUMMARY | 2020-06-08 02:25 | XMS REPORT | Continuity of Care Document ---
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 [facility] Allergies, Adverse Reactions, Alerts Allergy Name Allergy Type Status Severity Reaction(s) Onset Date Inacti ve Date Treating Clinician Comments Source No Known Allergies DA Active U 2020-06-01 00:00:00 [facility] No Known Allergies DA Active U 2020-05-30 00:00:00 [facility] ER No Known Allergies DA Active U 2020-05-24 00:00:00 [facility] ER No Known Allergies DA Active U 2020-05-21 00:00:00 [facility] ER No Known Allergies DA Active U 2020-05-20 00:00:00 [facility] ER Social History Social Habit Start Date Stop Date Quantity Comments Source Sex Assigned At 1990 00:00:00 1990 00:00:00 Male [facility] Medications This patient has no known medications. Vital Signs Vital Name Observation Time Observation Value Comments Source Body Temperature 2020-06-01 00:30:00 98.3 [degF] [facility] Weight 2020-05-31 20:24:00 192 [lb_av] [facility] BMI (Body Mass Index) 2020-05-31 20:24:00 30.1 kg/m2 [facility] Weight 2020-05-31 00:27:00 192 [lb_av] [facility] BMI (Body Mass Index) 2020-05-31 00:27:00 30.1 kg/m2 [facility] Procedures This patient has no known procedures. Plan of Care Planned Activity Planned Date Details Comments Source Instructions Anaphylaxis [facility] Encounters Start Date/Time End Date/Time Encounter Type Admission Type Attendi [facility] Care Department Encounter ID Source 2020-06-01 09:00:37 Outpatient [facility]SE MHSE [id number] [facility] 2020-05-31 20:27:00 2020-05-31 23:50:00 Departed Emergency Room [facility] [id number] [facility] 2020-05-31 00:33:00 2020-05-31 02:05:00 Departed Emergency Room [facility] [id number] [facility] 2020-05-29 02:17:00 2020-05-29 02:17:00 Emergency E MHSE MHSE [id number] [facility] 2020-05-28 17:59:00 2020-05-28 17:59:00 Emergency E MHSE [facility]SE 7513 [facility] 2020-05-25 01:40:00 2020-05-25 01:40:00 Emergency E MHSE [facility]SE [id number] [facility] 2020-05-23 01:20:00 2020-05-23 01:20:00 Emergency E MHSE [facility]SE 7511 [facility] 2020-05-22 01:00:00 2020-05-22 01:00:00 Emergency E MHSE [facility]SE 7510 [facility] 2020-05-19 17:53:00 2020-05-19 17:53:00 Emergency E MHSE MHSE [id number] [facility] 2020-05-18 19:03:00 2020-05-18 19:03:00 Emergency E MHSE MHSE 7508 [facility] 2020-05-17 20:10:00 2020-05-17 20:10:00 Emergency E MHSE MHSE 7507 [facility] 2020-05-16 23:43:00 2020-05-16 23:43:00 Emergency E SE MHSE [id number] [facility] 2020-05-14 01:59:00 2020-05-14 01:59:00 Emergency E MHSE SE 7505 [facility] 2020-04-30 10:21:00 2020-04-30 10:21:00 Emergency E SE SE 7504 [facility] 2020-04-22 01:29:00 2020-04-22 01:29:00 Emergency E SE SE 7503 [facility] Results Test Description Test Time Test Comments Results Result Comments Source BASIC METABOLIC PANEL 2020-06-02 00:30:00 Test Item SODIUM (test code = NA) 137 mmol/L 136-145 N POTASSIUM (test code = K) 3.2 mmol/L 3.5-5.1 L CHLORIDE (test code = CL) 107.0 mmol/L 98-107 N CARBON DIOXIDE (test code = CO2) 21.0 mmol/L 21-32 N ANION GAP (test code = GAP) 12.2 10-20 N GLUCOSE (test code = GLU) 150 mg/dL 74-106 H BLOOD UREA NITROGEN (test code = BUN) 12 mg/dL 7-18 N GLOMERULAR FILTRATION RATE (test code = GFR) > 60 mL/min >=60 Estimated GFR by using Modified MDRD formula.Chronic kidney disease is defined as either kidney damageor GFR <60 mL/min/1.73 m2 for >3 months. CREATININE (test code = CREAT) 0.90 mg/dL 0.7-1.3 N BUN/CREATININE RATIO (test code = BUN/CREA) 13.0 10-20 N CALCIUM (test code = CA) 8.9 mg/dL 8.5-10.1 N [id number] 00:30:00* Test Item Value Reference Range Interpretation Comments TROPONIN-I (test code = TROPI) <0.015 ng/mL 0-0.045 N BASIC METABOLIC [id number] 00:26:00* Test Item Value Reference Range Interpretation Comments SODIUM (test code = NA) 137 mmol/L 136-145 N POTASSIUM (test code = K) 3.2 mmol/L 3.5-5.1 L CHLORIDE (test code = CL) 107.0 mmol/L 98-107 N CARBON DIOXIDE (test code = CO2) mmol/L 21-32 ANION GAP (test code = GAP) 10-20 GLUCOSE (test code = GLU) mg/dL 74-106 BLOOD UREA NITROGEN (test code = BUN) mg/dL 7-18 GLOMERULAR FILTRATION RATE (test code = GFR) mL/min >=60 CREATININE (test code = CREAT) mg/dL 0.7-1.3 BUN/CREATININE RATIO (test code = BUN/CREA) 10-20 CALCIUM (test code = CA) mg/dL 8.5-10.1 [id number] 00:26:00* Test Item Value Reference Range Interpretation Comments TROPONIN-I (test code = TROPI) ng/mL 0-0.045 CBC W/O [id number] 23:56:00* Test Item Value Reference Range Interpretation Comments WHITE BLOOD CELL (test code = WBC) 10.1 K/mm3 4.5-12.5 N RED BLOOD CELL (test code = RBC) 4.91 mill/mm3 4.0-5.8 N HEMOGLOBIN (test code = HGB) 14.9 gram/dL 13.0-17.5 N HEMATOCRIT (test code = HCT) 42.1 % 42.0-52.0 N MEAN CELL VOLUME (test code = MCV) 85.7 fL 80-98 N MEAN CELL HGB (test code = MCH) 30.3 picogram 27.0-33.0 N MEAN CELL HGB CONCETRATION (test code = MCHC) 35.4 gram/dL 33.0-36. 0 N RED CELL DISTRIBUTION WIDTH (test code = RDW) 12.6 % 11.6-16. 2 N PLATELET COUNT (test code = PLT) 224 K/mm3 150-450 N MEAN PLATELET VOLUME (test code = MPV) 12.1 fL 6.7-11.0 H CBC W/O [id number] 23:54:00* Test Item Value Reference Range Interpretation Comments WHITE BLOOD CELL (test code = WBC) K/mm3 4.5-12.5 RED BLOOD CELL (test code = RBC) mill/mm3 4.0-5.8 HEMOGLOBIN (test code = HGB) 14.9 gram/dL 13.0-17.5 N HEMATOCRIT (test code = HCT) 42.1 % 42.0-52.0 N MEAN CELL VOLUME (test code = MCV) fL 80-98 MEAN CELL HGB (test code = MCH) picogram 27.0-33.0 MEAN CELL HGB CONCETRATION (test code = MCHC) gram/dL 33.0-36. 0 RED CELL DISTRIBUTION WIDTH (test code = RDW) % 11.6-16. 2 PLATELET COUNT (test code = PLT) 224 K/mm3 150-450 N MEAN PLATELET VOLUME (test code = MPV) fL 6.7-11.0 - XR CHEST 1 [id number] 23:35:00 FAX: Jamie Brady MD [phone] [place]: St: REG Name: Calixto ALYSEANDREWSANYA [facility] : [birth year] Age/S: 29/M [address] [facility] Unit #: [id number] Loc: [place] [address] Phys: Jamie Brady MD Acct: [id number] Dis Date: Status: REG ER PHONE #: [phone] Exam Date: 06/01/20202326 FAX #: [phone] Reason: CHEST PAIN EXAMS: CPT CODE: [id number] XR CHEST 1 V 36246 Examination: One view chest x-ray Location code: H60 Comparison: 05/23/2020 Discussion: Clinical history is remarkable for chest pain. He art is normal in size. Lungs are clear of consolidating infiltrates. No masses, nodules or effusions identified. When compared to prior study there has been no interval change. Impression: 1. Stable chest x-ray without evidence for acute infiltrates or effusions. Electronically Signed by Gamal Grubbs M.D. on 06/01 at 2335 Reported and signed by: Gamal Grubbs M.D. CC: Jamie Brady MD T echnologist: RT IMMANUEL Trndcrd Date /Time/By: 06/01/2020 (9459) : By: [email or web address] Orig Print D/T: S: 020 (8820) PAGE 1 Signed Report BASIC METABOLIC [id number] 22:35:00* Test Item Value Reference Range Interpretation [...] CA) 8.8 mg/dL 8.5-10.1 N HEPATIC FUNCTION [id number] 22:35:00* Test Item Value Reference Range Interpretation [...] reference range due to change in reagent. [id number] 22:35:00* Test Item Value Reference Range Interpretation Comments LIPASE (test code = LIP) 189 U/L 73.0-393.0 N BASIC METABOLIC [id number] 22:25:00* Test Item Value Reference Range Interpretation [...] code = CA) mg/dL 8.5-10.1 HEPATIC FUNCTION [id number] 22:25:00* Test Item Value Reference Range Interpretation [...] TOTAL (test code = ALKP) IUnit/L 45-117 [id number] 22:25:00* Test Item Value Reference Range Interpretation Comments LIPASE (test code = LIP) U/L 73.0-393.0 CBC W/O [id number] 22:09:00* Test Item Value Reference Range Interpretation [...] code = MPV) fL 6.7-11.0 CBC W/O [id number] 22:09:00* Test Item Value Reference Range Interpretation [...] fL 6.7-11.0 H - CT ABD PELVIS [id number] 22:05:00 Name: SANYA KABA [facility] : 1990 Age/S: 29 / M [address] [facility]: [id number] Loc: [place] [address] Phys: Brian Page MD Acct: [id number] Dis Date: Status: REG ER PHONE #: [phone] Exam Date: 05/23/20202199 FAX #: [phone] Reason: abd pain and bloating after endoscopy EXAMS: CPT CODE: [id number] CT ABD PELVIS W/CONT 25057 REASON FOR EXAM: abd pain and bloating after endoscopy EXAM ORDER DATE: 05/23/2020 9:36 PM Ordering: Brian Page MD Attending:Brian Page MD Location:[facility] PROCEDURE: - CT ABD PELVIS W/CONT COMPARISON: [...] 1 Signed Report (CONTINUED) Name: SANYA KABA [facility] : 1990 Age/S: 29 / M [address] [facility] Unit #: [id number] Loc: [place] [address] Phys: Brian Page MD Acct: [id number] Dis Date: Stat us: REG ER PHONE #: [phone] Exam Date: 05/23/20202199 FAX #: [phone] Reason: abd pain and bloating after endoscopy EXAMS: CPT CODE: [id number] CT ABD PELVIS W/CONT 55122 <Continued> CC: Brian Page MD Technologist:Chey Kaye RT(R); SAMIR Cotton CTDI: DLP: Trnscb Date/Time: 05/23/2020 (2204) Aiden Orig Print D/T: S: 05/23/2020 (2207) PAGE 2 Signed Report - XR CHEST 1 [id number] 21:37:00 FAX: Brian England [phone] [place]: St: REG Name: SANYA MONTAGUE [facility] : [birth year] Age/S: 29/M [address] [facility] Unit #: [id number] Loc: [place] [address] Phys: Brian Page Acct: [id number] Dis Date: Status: REG ER PHONE #: [phone] Exam Date: 05/23/20202134 FAX #: [phone] Reason: ABDOMINAL PAIN EXAMS: CPT CODE: [id number] XR CHEST 1 V 70129 REASON FOR EXAM: ABDOMINAL PAIN EXAM ORDER DATE: 05/23/2020 9:16 PM Ordering: Paris Page MD Attending:Brian Page MD Location:[facility] PROCEDURE: - XR CHEST 1 V COMPARISON: F INDINGS: Portable AP frontal view of the chest obtained at 9:30 PM shows clear lungs without evidence of consolidation. There is no evidence of eff usion. The heart size is within normal limits. Pulmonary vasculatures are unremarkable. IMPRESSION: No active disease. Electr onically Signed by Zhen Ovalle on 05/23/2020 at 1232 Re ported and signed by: Khadar Ovalle M.D. CC: Brian Page Technologist: TI LORENZ Trnscrd Date/Time/By: 05/23/2020 (2136) : By: [email or web address] Orig Print D/T: S: 05/23/2020 (2139) PAGE 1 Signed Report BASIC METABOLIC [id number] 22:01:00* Test Item Value Reference Range Interpretation [...] CA) 8.5 mg/dL 8.5-10.1 N HEPATIC FUNCTION [id number] 22:01:00* Test Item Value Reference Range Interpretation [...] reference range due to change in reagent. [id number] 22:01:00* Test Item Value Reference Range Interpretation Comments LIPASE (test code = LIP) 167 U/L 73.0-393.0 N BASIC METABOLIC [id number] 21:54:00* Test Item Value Reference Range Interpretation [...] code = CA) mg/dL 8.5-10.1 HEPATIC FUNCTION [id number] 21:54:00* Test Item Value Reference Range Interpretation [...] TOTAL (test code = ALKP) IUnit/L 45-117 [id number] 21:54:00* Test Item Value Reference Range Interpretation Comments LIPASE (test code = LIP) U/L 73.0-393.0 CBC W/O [id number] 21:51:00* Test Item Value Reference Range Interpretation [...] MPV) 12.0 fL 6.7-11.0 H CBC W/O [id number] 21:49:00* Test Item Value Reference Range Interpretation [...] MPV) fL 6.7-11.0 - CT HEAD/BRAIN W/O [id number] 13:44:00 Name: SANYA KABA [facility] : 1990 Age/S: 29 / M [address] [facility] Unit #: [id number] Loc: [place] [address] Phys: Sandrita Hernandez NP Acct: [id number] Dis Date: Status: REG ER PHONE #: [phone] Exam Date: 05/21/2020 1315 FAX #: [phone] Reason: headache, dizzines EXAMS: CPT CODE: [id number] CT HEAD/BRAIN W/O CONT 11947 HISTORY: headache, dizzines TECHNIQUE: Noncontrast 2.5 mm [...] are unremarkable. IMPRESSION: Negative CT head. Location: [facility] at 1344 Reported and signed by: Carlos Stoner MD CC: Sandrita Hernandez NP Technologist:Clementina Palomino RT(R),CT CTDI: DLP: Trn scb Date/Time: 05/21/2020 (1344) [email or web address] Orig Print D/T : S: 05/21/2020 (2571) PAGE 1 Signed Report COMPREHENSIVE METABOLIC [id number] 13:34:00* Test Item Value Reference Range Interpretation [...] due to change in reagent. COMPREHENSIVE METABOLIC [id number] 13:26:00* Test Item Value Reference Range Interpretation [...] code = ALKP) IUnit/L 45-117 CBC W/AUTO [id number] 13:15:00* Test Item Value Reference Range Interpretation [...] = NRBC#) 0.00 K/mm3 0.0-0.1 N URINALYSIS [id number] 19:53:00* Test Item Value Reference Range Interpretation [...] Urine Source? Clean CatchDRUGS OF ABUSE SCREEN [id number] 19:53:00* Test Item Value Reference Range Interpretation [...] NEGATIVE <300 ng/mL Urine Source? Clean CatchURINALYSIS [id number] 19:28:00* Test Item Value Reference Range Interpretation [...] Urine Source? Clean CatchDRUGS OF ABUSE SCREEN [id number] 19:28:00* Test Item Value Reference Range Interpretation [...] [place]) <300 ng/mL Urine Source? Clean CatchURINALYSIS [id number] 19:26:00* Test Item Value Reference Range Interpretation [...] Urine Source? Clean CatchDRUGS OF ABUSE SCREEN [id number] 19:26:00* Test Item Value Reference Range Interpretation [...] <300 ng/mL Urine Source? Clean CatchBASIC METABOLIC [id number] 19:14:00* Test Item Value Reference Range Interpretation [...] CA) 8.8 mg/dL 8.5-10.1 N HEPATIC FUNCTION [id number] 19:14:00* Test Item Value Reference Range Interpretation [...] reference range due to change in reagent. [id number] 19:14:00* Test Item Value Reference Range Interpretation Comments LIPASE (test code = LIP) 177 U/L 73.0-393.0 N [id number] 19:14:00* Test Item Value Reference Range Interpretation Comments TROPONIN-I (test code = TROPI) <0.015 ng/mL 0-0.045 N BASIC METABOLIC [id number] 19:08:00* Test Item Value Reference Range Interpretation [...] code = CA) mg/dL 8.5-10.1 HEPATIC FUNCTION [id number] 19:08:00* Test Item Value Reference Range Interpretation [...] TOTAL (test code = ALKP) IUnit/L 45-117 [id number] 19:08:00* Test Item Value Reference Range Interpretation Comments LIPASE (test code = LIP) U/L 73.0-393.0 [id number] 19:08:00* Test Item Value Reference Range Interpretation Comments TROPONIN-I (test code = TROPI) ng/mL 0-0.045 CBC W/O [id number] 18:52:00* Test Item Value Reference Range Interpretation [...] MPV) 12.0 fL 6.7-11.0 H CBC W/O [id number] 18:49:00* Test Item Value Reference Range Interpretation [...] = MPV) fL 6.7-11.0 - US ABDOMEN [id number] 18:33:00 Name: SANYA KABA [facility] : 1990 Age/S: 29 / M [address] [facility] Unit #: [id number] Loc: [place] [address] Phys: Ascencion Whitney NP Acct: [id number] Dis Date: Status: REG ER PHONE #: [phone] Exam Date: 05/20/2020 181 FAX #: [phone] Reason: Abdominal Pain EXAMS: CPT CODE: [id number] US ABDOMEN LTD 61501 REASON FOR EXAM: Abdominal Pain EXAM ORDER DATE: 05/20/2020 5:36 PM Attending M.D.: Ascencion Whitney NP PROCEDURE: - US ABDOMEN [...] 1 Signed Report (CONTINUED) Name: SANYA HERNANDEZ [facility] : 1990 Age/S: 29 / M [address] Unit #: [id number] L oc: [place], [place] [address] Phys: Ascencion Whitney NP Acct: [id number] Dis Date: Status: REG ER PHONE #: [phone] Exam Date: 05/20/2020 1815 FAX #: [phone] Li son: Abdominal Pain EXAMS: CPT CODE: [id number] US ABDOMEN LTD 73834 <Continued> stones: none cysts/masses: none hydronephrosis: none Ascites/pleural effusions: None IMPRESSION: Hepatomegaly with hepatic steatosis. Focal sparing at the gallbladder fossa. Location: [facility] at 1833 Reported and signed by: Carlos Stoner MD CC: Ascencion Whitney NP Technologist: Enrico Soliman Trndcb Date/Time: 05/20/2020 (1832) [email or web address] Orig Print D/T: S: 05/20/2020 (1835) Probe: PAGE 2 Signed Report - XR CHEST 1 [id number] 18:06:00 FAX: Ascencion Whitney [phone] [place]: St: REG Name: SANYA MONTAGUE [facility] : [birth year] Age/S: 29/M [address] Unit #: [id number] Loc: [place] [address] Phys: Ascencion Whitney FINISH CARPENTER Acct: [id number] Dis Date: Status: REG ER PHONE #: [phone] Exam Date: 05/20/2020 174 FAX #: [phone] Reason: EPIGASTRIC PAIN EXAMS: CPT CODE: [id number] XR CHEST 1 V 23880 REASON FOR EXAM: EPIGASTRI C PAIN Exam [...] limits. IMPRESSION: No acute cardiopulmonary process. Location: [facility] at 1806 Reported and signed by: Carlos Stoner MD CC: Ascencoin Whitney NP Technologist: TI LORENZ Trnscrd Date/Time/By: 05/20/2020 (1806) : By: Jaren [email or web address] Orig Print D/T: S: 05/20/2020 (1810) PAGE 1 Signed Report
[2020-06-08 02:31] VITALS: BP 131/85
== END 2020-06-08 02:39 | disposition home or self-care (01) ==
LOC: ER 02:22
DX: R53.1 Weakness (principal); R20.2 Paresthesia of skin; I10 Essential (primary) hypertension; E78.5 Hyperlipidemia, unspecified
CPT/HCPCS: 36415; 80053; 82550; 82553; 83735; 84484; 85025; 99283

== ENCOUNTER 2020-06-13 04:04 | Emergency (ER) | payer SELFPAY ==
[~2020-06-13] VITALS: Ht 170.2 cm; Wt 87.1 kg
[2020-06-13 04:21] VITALS: BP 140/100
--- NOTE | 2020-06-13 04:23 | Emergency Department Note ---
History of Present Illnes History of Present Illness Chief Complaint: Eye, Ear, Nose, Throat, Dental History of Present Illness This is a 29 year old male COMES IN TO ER DUE TO TOOTH INFECTION, PATIENT IS CURRENTLY ON ANTIBIOTICS AND HAS APPOINTMENT ON SATURDAY. WHEN ASKED ABOUT PAIN MEDICATION HE STATES ALL THEY GAVE HIM WAS ANTIBIOTICS . Arrival Mode: Car Onset (how long ago): day(s) (7) Location: LEFT UPPER MOLAR Quality: PAIN Radiation: Reports non-radiation Severity: severe Onset quality: gradual Duration (how long): day(s) (7) Timing of current episode: constant Progression: worsening Chronicity: new Context: Denies recent illness, Denies recent surgery, Denies trauma/injury Relieving factors: none Exacerbating factors: none Associated symptoms: Reports denies other symptoms Past Medical/Family History Physician Review I have reviewed the patient's past medical and family history. Any updates have been documented here. Past Medical History Recent Fever: No Clinical Suspicion of Infectio: No New/Unexplained Change in Ment: No Past Medical History: Hypertension, Hyperlipedemia Other Medical History: GASTRITIS IRON DEFICIENCY Past Surgical History: None Other Surgery: ABSCESS REMOVAL RT LEG Social History Smoking Cessation: Never Smoker Alcohol Use: Occasional Any Illegal Drug Use: No Family History Family history of heart diseas: No Review of Systems Review of Systems Constitutional: Reports no symptoms EENTM: Reports no symptoms Cardiovascular: Reports as per HPI Respiratory: Reports no symptoms Gastrointestinal: Reports no symptoms Genitourinary: Reports no symptoms Musculoskeletal: Reports no symptoms Integumentary: Reports no symptoms Neurological: Reports no symptoms Psychological: Reports no symptoms Endocrine: Reports no symptoms Hematological/Lymphatic: Reports no symptoms Physical Exam Related Data Allergies: Coded Allergies: No Known Allergies (Unverified , 05/31/20) Triage Vital Signs Vital Signs Date Time Temp Pulse Resp B/P (MAP) Pulse Ox O2 Delivery O2 Flow Rate FiO2 06/13/20 04:13 98.0 67 20 140/100 100 Room Air Vital signs reviewed: Yes Physical Exam CONSTITUTIONAL Constitutional: Present well-developed, Present well-nourished, Present distressed (MILD) HENT HENT: Present normocephalic, Present atraumatic, Present oropharynx clear/moist, Present nose normal, Present dental caries (EXTENSIVE, LEFT UPPER 1 MOLAR WITH LARGE DENTAL CAVITY) HENT L/R: Present left ext ear normal, Present right ext ear normal EYES Eyes: Reports PERRL, Reports conjunctivae normal NECK Neck: Present ROM normal PULMONARY Pulmonary: Present effort normal, Present breath sounds normal CARDIOVASCULAR Cardiovascular: Present regular rhythm, Present heart sounds normal, Present capillary refill normal, Present normal rate GASTROINTESTINAL Abdominal: Present soft, Present nontender, Present bowel sounds normal GENITOURINARY Genitourinary: Present exam deferred SKIN Skin: Present warm, Present dry MUSCULOSKELETAL Musculoskeletal: Present ROM normal NEUROLOGICAL Neurological: Present alert, Present oriented x 3, Present no gross motor or sensory deficits PSYCHOLOGICAL Psychological: Present mood/affect normal, Present judgement normal Assessment & Plan Medical Decision Making MDM PT WITH DENTAL PAIN PRESCRIBED DOLOBID 500 MG PO Q 12 HOURS PRN PAIN #14, TRAMADOL 50 MG 1 PO Q 6 HOURS PRN PAIN #20 Assessment & Plan Final Impression: (1) Pain, dental (2) Dental caries Depart Disposition: ADMITTED Last Vital Signs Date Time Temp Pulse Resp B/P (MAP) Pulse Ox O2 Delivery O2 Flow Rate FiO2 06/13/20 04:13 98.0 67 20 140/100 100 Room Air ANGIE GARY MD Jun 13, 2020 04:23
--- OUTSIDE RECORDS SUMMARY | 2020-06-13 04:30 | XMS REPORT | Continuity of Care Document ---
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 [facility] Allergic reaction Problem Active [facility] Weakness Problem Active [facility] Allergies, Adverse Reactions, Alerts Allergy Name Allergy Type Status Severity Reaction(s) Onset Date Inacti ve Date Treating Clinician Comments Source No Known Allergies DA Active U 2020-06-01 00:00:00 [facility] No Known Allergies DA Active U 2020-05-30 00:00:00 [facility] No Known Allergies DA Active U 2020-05-24 00:00:00 [facility] No Known Allergies DA Active U 2020-05-21 00:00:00 [facility] No Known Allergies DA Active U 2020-05-20 00:00:00 [facility] Social History Social Habit Start Date Stop Date Quantity Comments Source Sex Assigned At 1990 00:00:00 1990 00:00:00 Male [facility] Medications This patient has no known medications. Vital Signs Vital Name Observation Time Observation Value Comments Source Weight 2020-06-08 01:48:00 192 [lb_av] [facility] BMI (Body Mass Index) 2020-06-08 01:48:00 30.1 kg/m2 [facility] Body Temperature 2020-06-01 00:30:00 98.3 [degF] [facility] Weight 2020-05-31 20:24:00 192 [lb_av] [facility] BMI (Body Mass Index) 2020-05-31 20:24:00 30.1 kg/m2 [facility] Weight 2020-05-31 00:27:00 192 [lb_av] [facility] BMI (Body Mass Index) 2020-05-31 00:27:00 30.1 kg/m2 [facility] Procedures Procedure Date / Time Performed Performing Clinician Sourc e EMERGENCY DEPT VISIT 2020-05-31 00:00:00 [facility] Plan of Care Planned Activity Planned Date Details Comments Source Instructions Weakness (Generalized) [facility] Encounters Start Date/Time End Date/Time Encounter Type Admission Type [facility] Care Department Encounter ID Source 2020-06-01 09:00:37 Outpatient [facility]SE MHSE [id number] [facility] 2020-06-08 02:22:00 2020-06-08 02:39:00 Departed Emergency Room [facility] [id number] [facility] 2020-05-31 20:27:00 2020-05-31 23:50:00 Departed Emergency Room [facility] [id number] [facility] 2020-05-31 00:33:00 2020-05-31 02:05:00 Departed Emergency Room [facility] [id number] [facility] 2020-05-29 02:17:00 2020-05-29 02:17:00 Emergency E MHSE MHSE [id number] [facility] 2020-05-28 17:59:00 2020-05-28 17:59:00 Emergency E MHSE MHSE [id number] [facility] 2020-05-25 01:40:00 2020-05-25 01:40:00 Emergency E MHSE MHSE [id number] [facility] 2020-05-23 01:20:00 2020-05-23 01:20:00 Emergency E MHSE MHSE [id number] [facility] 2020-05-22 01:00:00 2020-05-22 01:00:00 Emergency E MHSE MHSE [id number] [facility] 2020-05-19 17:53:00 2020-05-19 17:53:00 Emergency E MHSE MHSE [id number] [facility] 2020-05-18 19:03:00 2020-05-18 19:03:00 Emergency E MHSE MHSE [id number] [facility] 2020-05-17 20:10:00 2020-05-17 20:10:00 Emergency E MHSE MHSE [id number] [facility] 2020-05-16 23:43:00 2020-05-16 23:43:00 Emergency E MHSE MHSE [id number] [facility] 2020-05-14 01:59:00 2020-05-14 01:59:00 Emergency E MHSE MHSE [id number] [facility] 2020-04-30 10:21:00 2020-04-30 10:21:00 Emergency E MHSE MHSE [id number] [facility] 2020-04-22 01:29:00 2020-04-22 01:29:00 Emergency E MHSE MHSE [id number] [facility] Results Test Description Test Time Test Comments Results Result Comments Source BASIC METABOLIC PANEL 2020-06-12 11:59:00 Test Item SODIUM (test code = NA) 140 mmol/L 136-145 N POTASSIUM (test code = K) 4.2 mmol/L 3.5-5.1 N CHLORIDE (test code = CL) 104.0 mmol/L 98-107 N CARBON DIOXIDE (test code = CO2) 21.0 mmol/L 21-32 N ANION GAP (test code = GAP) 19.2 10-20 N GLUCOSE (test code = GLU) 164 mg/dL 74-106 H BLOOD UREA NITROGEN (test code = BUN) 9 mg/dL 7-18 N GLOMERULAR FILTRATION RATE (test code = GFR) > 60 mL/min >=60 Estimated GFR by using Modified MDRD formula.Chronic kidney disease is defined as either kidney damageor GFR <60 mL/min/1.73 m2 for >3 months. CREATININE (test code = CREAT) 0.90 mg/dL 0.7-1.3 N BUN/CREATININE RATIO (test code = BUN/CREA) 10.2 10-20 N CALCIUM (test code = CA) 9.5 mg/dL 8.5-10.1 N HEPATIC FUNCTION [id number] 11:59:00* Test Item Value Reference Range Interpretation Comments TOTAL PROTEIN (test code = PROT) 7.2 gram/dL 6.4-8.2 N ALBUMIN (test code = ALB) 3.3 g/dL 3.4-5.0 L GLOBULIN (test code = GLOB) 3.9 gram/dL 2.7-4.2 N ALBUMIN/GLOBULIN RATIO (test code = A/G) 0.8 0.75-1.50 N BILIRUBIN TOTAL (test code = BILT) 1.10 mg/dL 0.0-1.0 H BILIRUBIN DIRECT (test code = BILD) 0.17 mg/dL 0.0-0.20 N SGOT/AST (test code = AST) 28 IUnit/L 15-37 N SGPT/ALT (test code = ALT) 62 IUnit/L 12-78 N ALKALINE PHOSPHATASE TOTAL (test code = ALKP) 87 IUnit/L 45-117 N Note change in reference range due to change in reagent. [id number] 11:59:00* Test Item Value Reference Range Interpretation Comments LIPASE (test code = LIP) 131 U/L 73.0-393.0 N [id number] 11:59:00* Test Item Value Reference Range Interpretation Comments TROPONIN-I (test code = TROPI) <0.015 ng/mL 0-0.045 N URINALYSIS [id number] 11:51:00* Test Item Value Reference Range Interpretation Comments UA COLOR (test code = COLU) COLORLESS YELLOW A UA APPEARANCE (test code = APPU) CLEAR CLEAR UA GLUCOSE DIPSTICK (test code = DGLUU) NEGATIVE mg/dL NEGATIVE UA BILIRUBIN DIPSTICK (test code = BILU) NEGATIVE mg/dL NEGATIVE UA KETONE DIPSTICK (test code = KETU) NEGATIVE mg/dL NEGATIVE UA SPECIFIC GRAVITY (test code = SGU) 1.007 1.001-1.035 UA BLOOD DIPSTICK (test code = CARLOS) Negative mg/dL NEGATIVE UA PH DIPSTICK (test code = YOMAIRA) 5.5 5.0-8.0 UA PROTEIN DIPSTICK (test code = PROU) NEGATIVE mg/dL NEGATIVE UA UROBILINIOGEN DIPSTICK (test code = URO) Normal mg/dL NEGATIVE UA NITRITE DIPSTICK (test code = ISRRAEL) NEGATIVE NEGATIVE UA LEUKOCYTE ESTERASE W REFLEX (test code = LEUUR) NEGATIVE Stephanie/uL NEGATIVE UA WBC (test code = WBCU) 0-5 per HPF 0-5 UA RBC (test code = RBCU) 0-3 #/HPF 0-5 UA EPITHELIAL CELLS (test code = EPIU) FEW per HPF FEW UA BACTERIA (test code = BACU) NONE SEEN #/HPF NONE Urine Source? Clean CatchBASIC METABOLIC [id number] 11:43:00* Test Item Value Reference Range Interpretation Comments SODIUM (test code = NA) 140 mmol/L 136-145 N POTASSIUM (test code = K) 4.2 mmol/L 3.5-5.1 N CHLORIDE (test code = CL) 104.0 mmol/L 98-107 N CARBON DIOXIDE (test code [...] code = CA) mg/dL 8.5-10.1 HEPATIC FUNCTION [id number] 11:43:00* Test Item Value Reference Range Interpretation Comments [...] TOTAL (test code = ALKP) IUnit/L 45-117 [id number] 11:43:00* Test Item Value Reference Range Interpretation Comments LIPASE (test code = LIP) U/L 73.0-393.0 [id number] 11:43:00* Test Item Value Reference Range Interpretation Comments TROPONIN-I (test code = TROPI) ng/mL 0-0.045 CBC W/O [id number] 11:29:00* Test Item Value Reference Range Interpretation Comments WHITE BLOOD CELL (test code = WBC) 6.3 K/mm3 4.5-12.5 N RED BLOOD CELL (test code = RBC) 5.08 mill/mm3 4.0-5.8 N HEMOGLOBIN (test code = HGB) 15.6 gram/dL 13.0-17.5 N HEMATOCRIT (test code = HCT) 45.6 % 42.0-52.0 N MEAN CELL VOLUME (test code = MCV) 89.8 fL 80-98 N MEAN CELL HGB (test code = MCH) 30.7 picogram 27.0-33.0 N MEAN CELL HGB CONCETRATION (test code = MCHC) 34.2 gram/dL 33.0-36. 0 N RED CELL DISTRIBUTION WIDTH (test code = RDW) 12.5 % 11.6-16. 2 N PLATELET COUNT (test code = PLT) 188 K/mm3 150-450 N MEAN PLATELET VOLUME (test code = MPV) 12.1 fL 6.7-11.0 H - XR ABDOMEN AP 1 [id number] 11:28:00 FAX: Iris Rajan NP [place]: B St: REG Name: SANYA MONTAGUE [facility] : [birth year] Age/S: 29/M [address] [facility] Unit #: [id number] Loc: [place] [address] Phys: Iris Rajan NP Acct: [id number] Dis Date: Status: REG ER PHONE #: [phone] Exam Date: 06/12/20201121 FAX #: [phone] Reason: ABDOMINAL PAIN EXAMS: CPT CODE: [id number] XR ABDOMEN AP 1 V 41574 HISTORY: ABDOMINAL PAIN TECHNIQUE: AP abdomen x-ray COMPARISON: None FINDINGS: Nonobstructive bowel gas pattern. Copious amount stool is pres ent in the rectum. No intra-abdominal mass effect. No abnormal calcifications are observed. 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 Visualized thorax is within normal limits. IMPRESSION: Copious rectal stool burden may rep resent constipation. Otherwise radiographically unremarkable abdomen. Location: [facility] at 1128 Reported and signed by: Carlos galnido MD CC: Iris Rajan NP Technologist: Yvonne Cintron(Tony) Trnseth Da te/Time/By: 06/12/2020 (1128) : By: [email or web address] Orig Print D/T: S: 06/12 (3370) PAGE 1 Signed Report CBC W/O [id number] 11:27:00* Test Item Value Reference Range Interpretation Comments WHITE BLOOD CELL (test code = WBC) K/mm3 4.5-12.5 RED BLOOD CELL (test code = RBC) mill/mm3 4.0-5.8 HEMOGLOBIN (test code = HGB) 15.6 gram/dL 13.0-17.5 N HEMATOCRIT (test code = HCT) 45.6 % 42.0-52.0 N MEAN CELL VOLUME (test code = MCV) fL 80-98 MEAN CELL HGB (test code = MCH) picogram 27.0-33.0 MEAN CELL HGB CONCETRATION (test code = MCHC) gram/dL 33.0-36. 0 RED CELL DISTRIBUTION WIDTH (test code = RDW) % 11.6-16. 2 PLATELET COUNT (test code = PLT) 188 K/mm3 150-450 N MEAN PLATELET VOLUME (test code = MPV) fL 6.7-11.0 Blood leukocytes automated count (number/volume)2020-06-08 01:58:00* Test Item Value Reference Range Interpretation Comments White Blood Count (test code = 6690-2) 7.61 4.8-10.8 [facility] count (number/volume)2020-06-08 01:58:00* Test Item Value Reference Range Interpretation Comments Red Blood Count (test code = 789-8) 4.71 4.3-5.7 [facility] hemoglobin measurement (moles/volume)2020-06-08 01:58:00* Test Item Value Reference Range Interpretation Comments Hemoglobin (test code = 80583-8) 14.1 14.0-18.0 [facility]ated blood hematocrit (volume fraction)2020-06-08 01:58:00* Test Item Value Reference Range Interpretation Comments Hematocrit (test code = 4544-3) 40.6 38.2-49.6 [facility] erythrocyte mean corpuscular [id number] 01:58:00* Test Item Value Reference Range Interpretation Comments Mean Corpuscular Volume (test code = 787-2) 86.2 81-99 [facility] eryth[facility] mean corpuscular hemoglobin (mass per erythrocyte)2020-06-08 01:58:00* Test Item Value Reference Range Interpretation Comments Mean Corpuscular Hemoglobin (test code = 785-6) 29.9 28-32 [facility] erythrocyte mean corpuscular hemoglobin concentration measurement (mass/volume)2020-06-08 01:58:00* Test Item Value Reference Range Interpretation Comments Mean Corpuscular Hemoglobin Concent (test code = 786-4) 34.7 31-35 [facility] AllenRDW [id number] 01:58:00* Test Item Value Reference Range Interpretation Comments Red Cell Distribution Width (test code = 40495-0) 12.5 11.7 -14.4 [facility] blood platelet count (count/volume)2020-06-08 01:58:00* Test Item Value Reference Range Interpretation Comments Platelet Count (test code = 777-3) 208 140-360 [facility] blood segmented neutrophil count as percentage of total fscktfthvc8466-29-15 01:58:00* Test Item Value Reference Range Interpretation Comments Neutrophils (%) (Auto) (test code = 99276-3) 46.5 38.7-80.0 [facility] Allen[facility] blood lymphocyte count as percentage ot total yarizinxob3793-43-44 01:58:00* Test Item Value Reference Range Interpretation Comments Lymphocytes (%) (Auto) (test code = 736-9) 43.8 18.0-39.1 [facility] blood monocyte count as percentage of total sxhrnxrclt7189-88-62 01:58:00* Test Item Value Reference Range Interpretation Comments Monocytes (%) (Auto) (test code = 5905-5) 6.3 4.4-11.3 [facility] blood eosinophil count as percentage of total myznaulvjh8680-15-85 01:58:00* Test Item Value Reference Range Interpretation Comments Eosinophils (%) (Auto) (test code = 713-8) 2.4 0.0-6.0 [facility] blood basophil count as percentage of total npnizbzzjz0703-91-19 01:58:00* Test Item Value Reference Range Interpretation Comments Basophils (%) (Auto) (test code = 706-2) 0.5 0.0-1.0 [facility] AllenFluoroscopic procedure less than one hour duvqyjms0096-46-20 01:58:00* Test Item Value Reference Range Interpretation Comments IM GRANULOCYTES % (test code = IM GRANULOCYTES %) 0.5 0.0- 1.0 [facility]Autom[facility] blood neutrophil count 2020-06-08 01:58:00* Test Item Value Reference Range Interpretation Comments Neutrophils # (Auto) (test code = 751-8) 3.5 2.1-6.9 [facility] lymphocytes count (number/volume) 2020-06-08 01:58:00* Test Item Value Reference Range Interpretation Comments Lymphocytes # (Auto) (test code = 76096-9) 3.3 1.0-3.2 [facility] monocytes automated count (number/volume)2020-06-08 01:58:00* Test Item Value Reference Range Interpretation Comments Monocytes # (Auto) (test code = 742-7) 0.5 0.2-0.8 [facility] AllenAutom[facility] blood eosinophil count 2020-06-08 01:58:00* Test Item Value Reference Range Interpretation Comments Eosinophils # (Auto) (test code = 711-2) 0.2 0.0-0.4 [facility] AllenAutomated blood basophil count (count/volume)2020-06-08 01:58:00* Test Item Value Reference Range Interpretation Comments Basophils # (Auto) (test code = 704-7) 0.0 0.0-0.1 [facility] AllenFluoroscopic procedure less than one hour gzvvpliz9060-30-39 01:58:00* Test Item Value Reference Range Interpretation Comments Absolute Immature Granulocyte (auto (filiberto t code = Absolute Immature Granulocyte (auto) 0.04 0-0.1 [facility] plasma sodium measurement (moles/volume)2020-06-08 01:58:00* Test Item Value Reference Range Interpretation Comments Sodium Level (test code = 2951-2) 142 136-145 [facility] or plasma potassium measurement (moles/volume)2020-06-08 01:58:00* Test Item Value Reference Range Interpretation Comments Potassium Level (test code = 2823-3) 3.6 3.5-5.1 [facility] or plasma chloride measurement (moles/volume)2020-06-08 01:58:00* Test Item Value Reference Range Interpretation Comments Chloride Level (test code = 2075-0) 110 98-107 [facility] or plasma carbon dioxide, total measurement (moles/volume)2020-06-08 01:58:00* Test Item Value Reference Range Interpretation Comments Carbon Dioxide Level (test code = 2028-9) 19 22-29 [facility]um or plasma anion mje2134-40-27 01:58:00* Test Item Value Reference Range Interpretation Comments Anion Gap (test code = 03034-6) 16.6 8-16 [facility] or plasma urea nitrogen measurement (mass/volume)2020-06-08 01:58:00* Test Item Value Reference Range Interpretation Comments Blood Urea Nitrogen (test code = 3094-0) 17 7-26 [facility] or plasma creatinine measurement (mass/volume)2020-06-08 01:58:00* Test Item Value Reference Range Interpretation Comments Creatinine (test code = 2160-0) 0.94 0.72-1.25 [facility] or plasma urea nitrogen/creatinine mass duczi7548-77-65 01:58:00* Test Item Value Reference Range Interpretation Comments BUN/Creatinine Ratio (test code = 3097-3) 18 6-25 [facility] AllenEstimated glomerular filtration rate (GFR) earepxajwgodo4613-70-55 01:58:00* Test Item Value Reference Range Interpretation Comments Estimat Glomerular Filtration Rate (test code = 986324592) > 60 >60 Ranges were taken from the National Kidney Disease Education Program and the [facility] literature.Reference ranges:60 or greater: Ojdfuo99-61 ( for 3 consecutive months): Chronic kidney disease 15 or less: Kidney failureTexas Health AllenGlucose lxdivyzelan3794-38-44 01:58:00* Test Item Value Reference Range Interpretation Comments Glucose Level (test code = AWI3666) 104 74-118 [facility] or plasma calcium measurement (mass/volume)2020-06-08 01:58:00* Test Item Value Reference Range Interpretation Comments Calcium Level (test code = 73306-6) 8.6 8.4-10.2 [facility]um or plasma magnesium measurement (mass/volume)2020-06-08 01:58:00* Test Item Value Reference Range Interpretation Comments Magnesium Level (test code = 70882-4) 2.1 1.3-2.1 [facility] or plasma total bilirubin measurement (mass/volume)2020-06-08 01:58:00* Test Item Value Reference Range Interpretation Comments Total Bilirubin (test code = 1975-2) 0.6 0.2-1.2 [facility] AllenFluoroscopic procedure less than one hour dqrwpjop8636-93-22 01:58:00* Test Item Value Reference Range Interpretation Comments Aspartate Amino Transf (AST/SGOT) (test code = Aspartate Amino Transf (AST/SGOT)) 19 5-34 [facility] or plasma alanine aminotransferase measurement (enzymatic activity/volume)2020-06-08 01:58:00* Test Item Value Reference Range Interpretation Comments Alanine Aminotransferase (ALT/SGPT) (test code = 1742-6) 40 0-55 [facility] or plasma protein measurement (mass/volume)2020-06-08 01:58:00* Test Item Value Reference Range Interpretation Comments Total Protein (test code = 2885-2) 7.0 6.5-8.1 [facility] or plasma albumin measurement (mass/volume)2020-06-08 01:58:00* Test Item Value Reference Range Interpretation Comments Albumin (test code = 1751-7) 4.1 3.5-5.0 [facility] AllenPlasma globulin measurement (mass/volume) 2020-06-08 01:58:00* Test Item Value Reference Range Interpretation Comments Globulin (test code = 20043-1) 2.9 2.3-3.5 [facility] or plasma albumin/globulin mass gzqku8297-02-28 01:58:00* Test Item Value Reference Range Interpretation Comments Albumin/Globulin Ratio (test code = 1759-0) 1.4 0.8-2.0 [facility] or plasma alkaline phosphatase measurement (enzymatic activity/volume)2020-06-08 01:58:00* Test Item Value Reference Range Interpretation Comments Alkaline Phosphatase (test code = 6768-6) 75 40-150 [facility] or plasma creatine kinase measurement (enzymatic activity/volume)2020-06-08 01:58:00* Test Item Value Reference Range Interpretation Comments Creatine Kinase (test code = 2157-6) 143 30-200 [facility]um or plasma creatine kinase MB measurement (mass/volume)2020-06-08 01:58:00* Test Item Value Reference Range Interpretation Comments Creatine Kinase MB (test code = 63506-1) < 1.00 0-4.3 [facility]um or plasma troponin i.cardiac measurement (mass/volume)2020-06-08 01:58:00* Test Item Value Reference Range Interpretation Comments Troponin I (test code = 03427-1) < 0.05 0.0-0.40 [facility] AllenBASIC [facility]ABOLIC [id number] 00:30:00 * Test Item Value Reference Range Interpretation Comments [...] code = CA) 8.9 mg/dL 8.5-10.1 N [id number] 00:30:00* Test Item Value Reference Range Interpretation Comments TROPONIN-I (test code = TROPI) <0.015 ng/mL 0-0.045 N BASIC METABOLIC [id number] 00:26:00* Test Item Value Reference Range Interpretation [...] CALCIUM (test code = CA) mg/dL 8.5-10.1 [id number]-[id number] 00:26:00* Test Item Value Reference Range Interpretation Comments TROPONIN-I (test code = TROPI) ng/mL 0-0.045 CBC W/O [id number] 23:56:00* Test Item Value Reference Range Interpretation [...] MPV) 12.1 fL 6.7-11.0 H CBC W/O [id number] 23:54:00* Test Item Value Reference Range Interpretation [...] MPV) fL 6.7-11.0 - XR CHEST 1 [id number] 23:35:00 FAX: Jamie Brady MD [phone] [place]: St: REG Name: SANYA MONTAGUE [facility] : [birth year] Age/S: 29/M [address] [facility] Unit #: [id number] Loc: [place] [address] Phys: Jamie Brady MD Acct: [id number] Dis Date: Status: REG ER PHONE #: [phone] Exam Date: 06/01/20202326 FAX #: [phone] Reason: CHEST PAIN EXAMS: CPT CODE: [id number] XR CHEST 1 V 21052 Examination: One view chest x-ray Location code: [...] by Gamal Grubbs M.D. on 06/01 at 2334 Reported and signed by: Gamal Grubbs M.D. CC: Jamie Brady MD echnologist: RT IMMANUEL Trnscrd Date /Time/By: 06/01/2020 (0440) : By: [email or web address] Orig Print D/T: S: 020 (1515) PAGE 1 Signed Report BASIC METABOLIC [id number] 22:35:00* Test Item Value Reference Range Interpretation [...] CA) 8.8 mg/dL 8.5-10.1 N HEPATIC FUNCTION [id number] 22:35:00* Test Item Value Reference Range Interpretation [...] reference range due to change in reagent. [id number] 22:35:00* Test Item Value Reference Range Interpretation Comments LIPASE (test code = LIP) 189 U/L 73.0-393.0 N BASIC METABOLIC [id number] 22:25:00* Test Item Value Reference Range Interpretation [...] code = CA) mg/dL 8.5-10.1 HEPATIC FUNCTION [id number] 22:25:00* Test Item Value Reference Range Interpretation [...] TOTAL (test code = ALKP) IUnit/L 45-117 [id number] 22:25:00* Test Item Value Reference Range Interpretation Comments LIPASE (test code = LIP) U/L 73.0-393.0 CBC W/O [id number] 22:09:00* Test Item Value Reference Range Interpretation [...] code = MPV) fL 6.7-11.0 CBC W/O [id number] 22:09:00* Test Item Value Reference Range Interpretation [...] fL 6.7-11.0 H - CT ABD PELVIS W/[id number] 22:05:00 Name: SANYA KABA [facility] : 1990 Age/S: 29 / M [address] Unit #: [id number] Loc: [place] [address] Phys: Brian Page MD Acct: [id number] Dis Date: Status: REG ER PHONE #: [phone] Exam Date: 05/23/20202199 FAX #: [phone] Reason: abd pain and bloating after endoscopy EXAMS: CPT CODE: [id number] CT ABD PELVIS W/CONT 29446 REASON FOR EXAM: abd pain and bloating after endoscopy EXAM ORDER DATE: 05/23/2020 9:36 PM Ordering: Brian Page MD Attending:Brian Page MD Location:[facility] PROCEDURE: - CT ABD PELVIS W/CONT COMPARISON: [...] 1 Signed Report (CONTINUED) Name: SANYA KABA [facility] : 1990 Age/S: 29 / M [address] [facility] Unit #: [id number] Loc: [place] [address] Phys: Brian Page MD Acct: [id number] Dis Date: Stat us: REG ER PHONE #: [phone] Exam Date: 05/23/20202199 FAX #: [phone] Reason: abd pain and bloating after endoscopy EXAMS: CPT CODE: [id number] CT ABD PELVIS W/CONT 45807 <Continued> CC: Brian Page MD Technologist:Chey Kaye RT(R); SAMIR Cotton CTDI: DLP: Trnscb Date/Time: 05/23/2020 (2204) CaitlynVTL Orig Print D/T: S: 05/23/2020 (2207) PAGE 2 Signed Report - XR CHEST 1 [id number] 21:37:00 FAX: Brian England [phone] [place]: St: REG Name: SANYA MONTAGUE [facility] : [birth year] Age/S: 29/M [address] [facility] Unit #: [id number] Loc: [place] [address] Phys: Brian Page Acct: [id number] Dis Date: Status: REG ER PHONE #: [phone] Exam Date: 05/23/20202134 FAX #: [phone] Reason: ABDOMINAL PAIN EXAMS: CPT CODE: [id number] XR CHEST 1 V 85525 REASON FOR EXAM: ABDOMINAL PAIN EXAM ORDER DATE: 05/23/2020 9:16 PM Ordering: Paris Page MD Attending:Brian Page MD Location:[facility] PROCEDURE: - XR CHEST 1 V COMPARISON: [...] LORENZ Trnscrd Date/Time/By: 05/23/2020 (2136) : By: CaitlynVTL Orig Print D/T: S: 05/23/2020 (5299) PAGE 1 Signed Report BASIC METABOLIC [id number] 22:01:00* Test Item Value Reference Range Interpretation [...] CA) 8.5 mg/dL 8.5-10.1 N HEPATIC FUNCTION [id number] 22:01:00* Test Item Value Reference Range Interpretation [...] reference range due to change in reagent. [id number] 22:01:00* Test Item Value Reference Range Interpretation Comments LIPASE (test code = LIP) 167 U/L 73.0-393.0 N BASIC METABOLIC [id number] 21:54:00* Test Item Value Reference Range Interpretation [...] code = CA) mg/dL 8.5-10.1 HEPATIC FUNCTION [id number] 21:54:00* Test Item Value Reference Range Interpretation [...] TOTAL (test code = ALKP) IUnit/L 45-117 [id number] 21:54:00* Test Item Value Reference Range Interpretation Comments LIPASE (test code = LIP) U/L 73.0-393.0 CBC W/O [id number] 21:51:00* Test Item Value Reference Range Interpretation [...] MPV) 12.0 fL 6.7-11.0 H CBC W/O [id number] 21:49:00* Test Item Value Reference Range Interpretation [...] MPV) fL 6.7-11.0 - CT HEAD/BRAIN W/O [id number] 13:44:00 Name: KABASANYA [facility] : 1990 Age/S: 29 / M [address] [facility] Unit #: [id number] Loc: [facility] [place] [address] Phys: Sandrita Hernandez CAMPAIGN ASSOCIATE Acct: [id number] Dis Date: Status: REG ER PHONE #: [phone] Exam Date: 05/21/2020 1315 FAX #: [phone] Reason: headache, dizzines EXAMS: CPT CODE: [id number] CT HEAD/BRAIN W/O CONT 19244 HISTORY: headache, dizzines TECHNIQUE: Noncontrast 2.5 mm [...] are unremarkable. IMPRESSION: Negative CT head. Location: [facility] at 1344 Reported and signed by: Carlos Stoner MD CC: Sandrita Hernandez NP Technologist:Clementina Palomino RT(R),CT CTDI: DLP: Trn scb Date/Time: 05/21/2020 (8514) [email or web address] Orig Print D/T : S: 05/21/2020 (6777) PAGE 1 Signed Report COMPREHENSIVE METABOLIC [id number] 13:34:00* Test Item Value Reference Range Interpretation [...] due to change in reagent. COMPREHENSIVE METABOLIC [id number] 13:26:00* Test Item Value Reference Range Interpretation [...] code = ALKP) IUnit/L 45-117 CBC W/AUTO [id number] 13:15:00* Test Item Value Reference Range Interpretation [...] = NRBC#) 0.00 K/mm3 0.0-0.1 N URINALYSIS [id number] 19:53:00* Test Item Value Reference Range Interpretation [...] Urine Source? Clean CatchDRUGS OF ABUSE SCREEN [id number] 19:53:00* Test Item Value Reference Range Interpretation [...] NEGATIVE <300 ng/mL Urine Source? Clean CatchURINALYSIS [id number] 19:28:00* Test Item Value Reference Range Interpretation [...] Urine Source? Clean CatchDRUGS OF ABUSE SCREEN [id number] 19:28:00* Test Item Value Reference Range Interpretation [...] [place]) <300 ng/mL Urine Source? Clean CatchURINALYSIS [id number] 19:26:00* Test Item Value Reference Range Interpretation [...] Urine Source? Clean CatchDRUGS OF ABUSE SCREEN [id number] 19:26:00* Test Item Value Reference Range Interpretation [...] <300 ng/mL Urine Source? Clean CatchBASIC METABOLIC [id number] 19:14:00* Test Item Value Reference Range Interpretation [...] CA) 8.8 mg/dL 8.5-10.1 N HEPATIC FUNCTION [id number] 19:14:00* Test Item Value Reference Range Interpretation [...] reference range due to change in reagent. [id number] 19:14:00* Test Item Value Reference Range Interpretation Comments LIPASE (test code = LIP) 177 U/L 73.0-393.0 N [id number] 19:14:00* Test Item Value Reference Range Interpretation Comments TROPONIN-I (test code = TROPI) <0.015 ng/mL 0-0.045 N BASIC METABOLIC [id number] 19:08:00* Test Item Value Reference Range Interpretation [...] code = CA) mg/dL 8.5-10.1 HEPATIC FUNCTION [id number] 19:08:00* Test Item Value Reference Range Interpretation [...] TOTAL (test code = ALKP) IUnit/L 45-117 [id number] 19:08:00* Test Item Value Reference Range Interpretation Comments LIPASE (test code = LIP) U/L 73.0-393.0 [id number] 19:08:00* Test Item Value Reference Range Interpretation Comments TROPONIN-I (test code = TROPI) ng/mL 0-0.045 CBC W/O [id number] 18:52:00* Test Item Value Reference Range Interpretation [...] MPV) 12.0 fL 6.7-11.0 H CBC W/O [id number] 18:49:00* Test Item Value Reference Range Interpretation [...] = MPV) fL 6.7-11.0 - US ABDOMEN [id number] 18:33:00 Name: SANYA KABA [facility] : 1990 Age/S: 29 / M [address] [facility] Unit #: [id number] Loc: [place] [address] Phys: Ascencion Whitney NP Acct: [id number] Dis Date: Status: REG ER PHONE #: [phone] Exam Date: 05/20/20201814 FAX #: [phone] Reason: Abdominal Pain EXAMS: CPT CODE: [id number] US ABDOMEN LTD 95599 REASON FOR EXAM: Abdominal Pain EXAM ORDER [...] 1 Signed Report (CONTINUED) Name: SANYA HERNANDEZ [facility] : 1990 Age/S: 29 / M [address] Unit #: [id number] L oc: [place], [place] [address] Phys: Ascencion Whitney NP Acct: [id number] Dis Date: Status: REG ER PHONE #: [phone] Exam Date: 05/20/2020 1815 FAX #: [phone] [place] son: Abdominal Pain EXAMS: CPT CODE: [id number] ABDOMEN [facility] [address] <Continued> stones: none cysts/masses: none hydronephrosis: none Ascites/pleural effusions: None IMPRESSION: Hepatomegaly with hepatic steatosis. Focal sparing at the gallbladder fossa. Location: [facility] at 1833 Reported and signed by: Carlos Stoner MD CC: Ascencion Whitney NP Technologist: Enrico Soliman Trnscb Date/Time: 05/20/2020 (1832) [email or web address] Orig Print D/T: S: 05/20/2020 (1835) Probe: PAGE 2 Signed Report - XR CHEST 1 [id number] 18:06:00 FAX: Ascencion Whitney [phone] [place]: St: REG Name: SANYA MONTAGUE [facility] : [birth year] Age/S: 29/M [address] Unit #: [id number] Loc: [place] [address] Phys: Ascencion Whitney CAMPAIGN ASSOCIATE Acct: [id number] Dis Date: Status: REG ER PHONE #: [phone] Exam Date: 05/20/2020 174 FAX #: [phone] Reason: EPIGASTRIC PAIN EXAMS: CPT CODE: [id number] XR CHEST 1 V 04293 REASON FOR EXAM: EPIGASTRI C PAIN Exam Order Date: 05/20/2020 5:37 PM Ordering M Richar: Ascencion Whitney NP PROCEDURE: - XR CHEST [...] limits. IMPRESSION: No acute cardiopulmonary process. Location: [facility] at 1806 Reported and signed by: Carlos Stoner MD CC: Ascencion Whitney NP Technologist: TI LORENZ Trnscrd Date/Time/By: 05/20/2020 (180) : By: Jaren KingstonRR31 Orig Print D/T: S: 05/20/2020 (181) PAGE 1 Signed Report
== END 2020-06-13 04:25 | disposition home or self-care (01) ==
LOC: ER 04:10
DX: K08.89 Other specified disorders of teeth and supporting structures (principal); K02.9 Dental caries, unspecified; I10 Essential (primary) hypertension; E78.5 Hyperlipidemia, unspecified
CPT/HCPCS: 99282

== ENCOUNTER 2020-06-16 21:05 | Emergency (ER) | payer SELFPAY ==
[~2020-06-16] VITALS: Ht 170.2 cm; Wt 87.1 kg
[2020-06-16] MEDS ORDERED: DEXAMETHASONE 4 MG TAB PO STA (21:56)
--- NOTE | 2020-06-16 22:04 | Emergency Department Note ---
History of Present Illnes History of Present Illness Chief Complaint: Skin Rash or Abscess History of Present Illness This is a 29 year old male Chief Complaint Comment 29 Y/O MALE PT AAOX3 REPORTS ITCHING SENSATION TO BUE X2 DAYS. States he is on clindamycin for tooth infection and is being seen for this. Told his doctor and he was told to DC clindamycin. Last dose was this morning. He has tried benadryl 3 hours ago Historian: Patient Arrival Mode: [place] [employer] Required: No Onset (how long ago): day(s) (2) Location: [facility] Quality: itching Radiation: Reports non-radiation Severity: mild Onset quality: gradual Duration (how long): day(s) (2) Timing of current episode: constant Progression: unchanged Chronicity: new Context: Denies recent illness, Denies recent surgery Relieving factors: none Exacerbating factors: none Associated symptoms: Reports denies other symptoms Treatments prior to arrival: none Past Medical/Family History Physician Review I have reviewed the patient's past medical and family history. Any updates have been documented here. Past Medical History Recent Fever: No Clinical Suspicion of Infectio: No New/Unexplained Change in Ment: No Past Medical History: Hypertension, Hyperlipedemia Other Medical History: GASTRITIS IRON DEFICIENCY Past Surgical History: None Other Surgery: ABSCESS REMOVAL RT LEG Social History Smoking Cessation: Never Smoker Counseling Performed: No Alcohol Use: None Any Illegal Drug Use: No Other Any Pre-Existing Lines (PICC,: No Review of Systems Review of Systems Constitutional: Reports no symptoms EENTM: Reports no symptoms Cardiovascular: Reports no symptoms Respiratory: Reports no symptoms Gastrointestinal: Reports no symptoms Genitourinary: Reports no symptoms Musculoskeletal: Reports no symptoms Integumentary: Reports no symptoms, Reports other (Itching) Neurological: Reports as per HPI Psychological: Reports no symptoms Endocrine: Reports no symptoms Hematological/Lymphatic: Reports no symptoms Physical Exam Related Data Allergies: Coded Allergies: No Known Allergies (Unverified , 05/31/20) Triage Vital Signs Vital Signs Date Time Temp Pulse Resp B/P (MAP) Pulse Ox O2 Delivery O2 Flow Rate FiO2 06/16/20 21:49 98.0 76 17 137/97 99 Room Air Vital signs reviewed: Yes Physical Exam CONSTITUTIONAL Constitutional: Present well-developed, Present well-nourished HENT HENT: Present normocephalic, Present atraumatic, Present oropharynx clear/moist, Present nose normal HENT L/R: Present left ext ear normal, Present right ext ear normal EYES Eyes: Reports PERRL, Reports conjunctivae normal NECK Neck: Present ROM normal PULMONARY Pulmonary: Present effort normal, Present breath sounds normal CARDIOVASCULAR Cardiovascular: Present regular rhythm, Present heart sounds normal, Present capillary refill normal, Present normal rate GASTROINTESTINAL Abdominal: Present soft, Present nontender, Present bowel sounds normal GENITOURINARY Genitourinary: Present exam deferred SKIN Skin: Present warm, Present dry MUSCULOSKELETAL Musculoskeletal: Present ROM normal NEUROLOGICAL Neurological: Present alert, Present oriented x 3, Present no gross motor or sensory deficits PSYCHOLOGICAL Psychological: Present mood/affect normal, Present judgement normal Assessment & Plan Medical Decision Making MDM 29 y.o m presents fotr itching after robin clindamycin. He has DC'd Clinda and tried benadryl at home. Per his doctor he is to stop clindamycin. he was given 10mg Decadron and instructed to add Claratin during the day for his symptoms and f/u w/ his doctor. Reassessment Reassessment time: 22:07 Reassessment Well appearing, NAD Assessment & Plan Final Impression: (1) Allergic reaction Depart Disposition: HOME, SELF-CARE Last Vital Signs Date Time Temp Pulse Resp B/P (MAP) Pulse Ox O2 Delivery O2 Flow Rate FiO2 06/16/20 21:49 98.0 76 17 137/97 99 Room Air Medications in the ED Dexamethasone 10 mg ONCE STAT PO ; Start 06/16/20 at 21:56; Stop 06/16/20 at 21:57; Status UNV JOAN RIVAS MD Jun 16, 2020 22:03
--- OUTSIDE RECORDS SUMMARY | 2020-06-16 22:14 | XMS REPORT | Continuity of Care Document ---
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 Allergic reaction Problem Active [facility] Weakness Problem Active [facility] Toothache Problem Active [facility] Dental caries Problem Active [facility] Allergies, Adverse Reactions, Alerts Allergy Name Allergy Type Status Severity Reaction(s) Onset Date Inacti ve Date Treating Clinician Comments Source No Known Allergies DA Active U 2020-06-01 00:00:00 [facility] No Known Allergies DA Active U 2020-05-30 00:00:00 [facility] No Known Allergies DA Active U 2020-05-24 00:00:00 [facility] No Known Allergies DA Active U 2020-05-21 00:00:00 [facility] No Known Allergies DA Active U 2020-05-20 00:00:00 [facility] Social History Social Habit Start Date Stop Date Quantity Comments Source Sex Assigned At 1990 00:00:00 1990 00:00:[address] [facility] Medications This patient has no known medications. Vital Signs Vital Name Observation Time Observation Value Comments Source Body Temperature 2020-06-13 04:21:00 98.0 [degF] [facility] Weight 2020-06-13 04:13:00 192 [lb_av] [facility] BMI (Body Mass Index) 2020-06-13 04:13:00 30.1 kg/m2 [facility] Weight 2020-06-08 01:48:00 192 [lb_av] [facility] BMI (Body Mass Index) 2020-06-08 01:48:00 30.1 kg/m2 [facility] Body Temperature 2020-06-01 00:30:00 98.3 [degF] [facility] Weight 2020-05-31 20:24:00 192 [lb_av] [facility] BMI (Body Mass Index) 2020-05-31 20:24:00 30.1 kg/m2 [facility] Weight 2020-05-31 00:27:00 192 [lb_av] [facility] BMI (Body Mass Index) 2020-05-31 00:27:00 30.1 kg/m2 [facility] Procedures Procedure Date / Time Performed Performing Clinician [facility] e EMERGENCY DEPT VISIT 2020-05-31 00:00:[address] [facility] Plan of Care Planned Activity Planned Date Details Comments Source Instructions Dental Caries (Cavities) [facility] Encounters Start Date/Time End Date/Time Encounter Type Admission Type [facility] Care Department Encounter ID Source 2020-06-01 09:00:37 Outpatient SE MH [id number] 2020-06-13 04:10:00 2020-06-13 04:25:00 [facility] [id number] [facility] 2020-06-08 02:22:00 2020-06-08 02:39:00 [facility] [id number] [facility] 2020-05-31 20:27:00 2020-05-31 23:50:00 Departed Emergency Room [facility] [id number] [facility] 2020-05-31 00:33:00 2020-05-31 02:05:00 [facility] [id number] [facility] 2020-05-29 02:17:00 2020-05-29 02:17:00 Emergency E [facility]SE [facility]SE [id number] [facility] 2020-05-28 17:59:00 2020-05-28 17:59:00 Emergency E MHSE MHSE [id number] [facility] 2020-05-25 01:40:00 2020-05-25 01:40:00 Emergency E MHSE MHSE [id number] [facility] 2020-05-23 01:20:00 2020-05-23 01:20:00 Emergency E MHSE MHSE [id number] [facility] 2020-05-22 01:00:00 2020-05-22 01:00:00 Emergency E MHSE MHSE [id number] [facility] 2020-05-19 17:53:00 2020-05-19 17:53:00 Emergency E MHSE MHSE [id number] [facility] 2020-05-18 19:03:00 2020-05-18 19:03:00 Emergency E MHSE MHSE [id number] [facility] 2020-05-17 20:10:00 2020-05-17 20:10:00 Emergency E MHSE MHSE [id number] [facility] 2020-05-16 23:43:00 2020-05-16 23:43:00 Emergency E MHSE MHSE [id number] [facility] 2020-05-14 01:59:00 2020-05-14 01:59:00 Emergency E MHSE MHSE [id number] [facility] 2020-04-30 10:21:00 2020-04-30 10:21:00 Emergency E MHSE MHSE [id number] [facility] 2020-04-22 01:29:00 2020-04-22 01:29:00 Emergency E MHSE MHSE [id number] [facility] Results Test Description Test Time Test Comments [...] CA) 9.5 mg/dL 8.5-10.1 N HEPATIC FUNCTION [id number] 11:59:00* Test Item Value Reference Range Interpretation [...] reference range due to change in reagent. [id number] 11:59:00* Test Item Value Reference Range Interpretation Comments LIPASE (test code = LIP) 131 U/L 73.0-393.0 N [id number] 11:59:00* Test Item Value Reference Range Interpretation Comments TROPONIN-I (test code = TROPI) <0.015 ng/mL 0-0.045 N URINALYSIS [id number] 11:51:00* Test Item Value Reference Range Interpretation [...] #/HPF NONE Urine Source? Clean CatchBASIC METABOLIC [id number] 11:43:00* Test Item Value Reference Range Interpretation [...] code = CA) mg/dL 8.5-10.1 HEPATIC FUNCTION [id number] 11:43:00* Test Item Value Reference Range Interpretation [...] TOTAL (test code = ALKP) IUnit/L 45-117 [id number] 11:43:00* Test Item Value Reference Range Interpretation Comments LIPASE (test code = LIP) U/L 73.0-393.0 [id number] 11:43:00* Test Item Value Reference Range Interpretation Comments TROPONIN-I (test code = TROPI) ng/mL 0-0.045 CBC W/O [id number] 11:29:00* Test Item Value Reference Range Interpretation [...] 6.7-11.0 H - XR ABDOMEN AP 1 [id number] 11:28:00 FAX: Iris Rajan NP [place]: St: REG Name: SANYA MONTAGUE [facility] : [birth year] Age/S: 29/M [address] [facility] Unit #: [id number] Loc: ISAAC Miranda [address] Phys: Iris Rajan NP Acct: [id number] Dis Date: Status: REG ER PHONE #: [phone] Exam Date: 06/12/20201121 FAX #: [phone] Reason: ABDOMINAL PAIN EXAMS: CPT CODE: [id number] XR ABDOMEN AP 1 V 82363 HISTORY: ABDOMINAL PAIN TECHNIQUE: AP abdomen x-ray [...] at 1128 Reported and signed by: Carlos galindo MD CC: Iris Rajan NP Technologist: Yvonne Djeesus) Trnscrd Maciel te/Time/By: 06/12/2020 (1128) : By: [email or web address] Orig Print D/T: S: [birth year] (1942) PAGE 1 Signed Report CBC W/O [id number] 11:27:00* Test Item Value Reference Range Interpretation [...] Count (test code = 6690-2) 7.61 4.8-10.8 [facility] erythrocytes automated count (number/volume)2020-06-08 01:58:00* Test Item Value Reference Range Interpretation Comments Red Blood Count (test code = 789-8) 4.71 4.3-5.[address] hemoglobin measurement (moles/volume)2020-06-08 01:58:00* Test Item Value Reference Range Interpretation Comments Hemoglobin (test code = 17227-0) 14.1 14.0-18.[address] [facility] HospitalAutdor[facility] blood hematocrit (volume fraction)2020-06-08 01:58:00* Test Item Value Reference Range Interpretation Comments Hematocrit (test code = 4544-3) 40.6 38.2-49.[address] [facility] HospitalAutomated erythrocyte mean corpuscular [id number] 01:58:00* Test Item Value Reference Range Interpretation Comments Mean Corpuscular Volume (test code = 787-2) 86.2 81-[address] [facility] HospitalAutom[facility] erythrocyte mean corpuscular hemoglobin (mass per erythrocyte)2020-06-08 01:58:00* Test Item Value Reference Range Interpretation Comments Mean Corpuscular Hemoglobin (test code = 785-6) 29.9 28-[address] HospitalAutom[facility] erythrocyte mean corpuscular hemoglobin concentration measurement (mass/volume)2020-06-08 01:58:00* Test Item Value Reference Range Interpretation Comments Mean Corpuscular Hemoglobin Concent (test code = 786-4) 34.7 31-[address] [facility] HospitalRDW [id number] 01:58:00* Test Item Value Reference Range Interpretation Comments Red Cell Distribution Width (test code = 39733-1) 12.5 11.7 -14.[address] [facility] HospitalAutom[facility] blood platelet count (count/volume)2020-06-08 01:58:00* Test Item Value Reference Range Interpretation Comments Platelet Count (test code = 777-3) 208 140-[address] [facility] HospitalAutcritical access hospitaled blood segmented neutrophil count as percentage of total hkiciydewi1348-53-76 01:58:00* Test Item Value Reference Range Interpretation Comments Neutrophils (%) (Auto) (test code = 27163-4) 46.5 38.7-80.[address] [facility] HospitalAutom[facility] blood lymphocyte count as percentage ot total zvvfrzymzb9268-75-86 01:58:00* Test Item Value Reference Range Interpretation Comments Lymphocytes (%) (Auto) (test code = 736-9) 43.8 18.0-39.[address] HospitalAutom[facility] blood monocyte count as percentage of total fcdhkeonlj0229-24-74 01:58:00* Test Item Value Reference Range Interpretation Comments Monocytes (%) (Auto) (test code = 5905-5) 6.3 4.4-11.[address] HospitalAutom[facility] blood eosinophil count as percentage of total plgtoadqsb7861-27-75 01:58:00* Test Item Value Reference Range Interpretation Comments Eosinophils (%) (Auto) (test code = 713-8) 2.4 0.0-6.[address] HospitalAutom[facility] blood basophil count as percentage of total juwbfzpvws7801-75-65 01:58:00* Test Item Value Reference Range Interpretation Comments Basophils (%) (Auto) (test code = 706-2) 0.5 0.0-1.[address] [facility] HospitalFluoroscopic procedure less than one hour [id number] 01:58:00* Test Item Value Reference Range Interpretation Comments IM GRANULOCYTES % (test code = IM GRANULOCYTES %) 0.5 0.0- 1.[address] [facility] HospitalAutom[facility] blood neutrophil count 2020-06-08 01:58:00* Test Item Value Reference Range Interpretation Comments Neutrophils # (Auto) (test code = 751-8) 3.5 2.1-6.[address] HospitalBlood lymphocytes count (number/volume) 2020-06-08 01:58:00* Test Item Value Reference Range Interpretation Comments Lymphocytes # (Auto) (test code = 49867-4) 3.3 1.0-3.[address] [facility] HospitalB[facility]leep[facility] monocytes automated count (number/volume)2020-06-08 01:58:00* Test Item Value Reference Range Interpretation Comments Monocytes # (Auto) (test code = 742-7) 0.5 0.2-0.[address] [facility] HospitalAutom[facility] blood eosinophil count 2020-06-08 01:58:00* Test Item Value Reference Range Interpretation Comments Eosinophils # (Auto) (test code = 711-2) 0.2 0.0-0.[address] [facility] HospitalAutom[facility] blood basophil count (count/volume)2020-06-08 01:58:00* Test Item Value Reference Range Interpretation Comments Basophils # (Auto) (test code = 704-7) 0.0 0.0-0.[address] [facility] HospitalFluoroscopic procedure less than one hour lyuzbgii8091-11-75 01:58:00* Test Item Value Reference Range Interpretation Comments Absolute Immature Granulocyte (auto (filiberto t code = Absolute Immature Granulocyte (auto) 0.04 0-0.1 [facility] sodium measurement (moles/volume)2020-06-08 01:58:00* Test Item Value Reference Range Interpretation Comments Sodium Level (test code = 2951-2) 142 136-145 [facility] potassium measurement (moles/volume)2020-06-08 01:58:00* Test Item Value Reference Range Interpretation Comments Potassium Level (test code = 2823-3) 3.6 3.5-5.1 [facility] chloride measurement (moles/volume)2020-06-08 01:58:00* Test Item Value Reference Range Interpretation Comments Chloride Level (test code = 2075-0) 110 98-107 [facility] plasma carbon dioxide, total measurement (moles/volume)2020-06-08 01:58:00* Test Item Value Reference Range Interpretation Comments Carbon Dioxide Level (test code = 2028-9) 19 22-29 [facility] plasma anion [id number] 01:58:00* Test Item Value Reference Range Interpretation Comments Anion Gap (test code = 12830-5) 16.6 8-16 [facility] urea nitrogen measurement (mass/volume)2020-06-08 01:58:00* Test Item Value Reference Range Interpretation Comments Blood Urea Nitrogen (test code = 3094-0) 17 7-26 [facility] creatinine measurement (mass/volume)2020-06-08 01:58:00* Test Item Value Reference Range Interpretation Comments Creatinine (test code = 2160-0) 0.94 0.72-1.25 [facility] plasma urea nitrogen/creatinine mass ukkvh2328-10-18 01:58:00* Test Item Value Reference Range Interpretation Comments BUN/Creatinine Ratio (test code = 3097-3) 18 6-[address] HospitalEstimated glomerular filtration rate (GFR) ytfgovpwcjvbl5381-61-41 01:58:00* Test Item Value Reference Range Interpretation Comments Estimat Glomerular Filtration Rate (test code = 141815679) > 60 >60 Ranges were taken from the National Kidney Disease Education Program and the [place] [facility] literature.Reference ranges:60 or greater: Ffowge80-23 ( for 3 consecutive months): Chronic kidney disease 15 or less: Kidney failureCH[facility] St[facility] HospitalGlucose bovezuckhby0791-64-98 01:58:00* Test Item Value Reference Range Interpretation Comments Glucose Level (test code = BEA8509) 104 74-118 [facility] calcium measurement (mass/volume)2020-06-08 01:58:00* Test Item Value Reference Range Interpretation Comments Calcium Level (test code = 36358-5) 8.6 8.4-10.2 [facility] plasma magnesium measurement (mass/volume)2020-06-08 01:58:00* Test Item Value Reference Range Interpretation Comments Magnesium Level (test code = 55101-9) 2.1 1.3-2.1 [facility] total bilirubin measurement (mass/volume)2020-06-08 01:58:00* Test Item Value Reference Range Interpretation Comments Total Bilirubin (test code = 1975-2) 0.6 0.2-1.[address] HospitalFluoroscopic procedure less than one hour ijgnykkq2850-84-61 01:58:00* Test Item Value Reference Range Interpretation Comments Aspartate Amino Transf (AST/SGOT) (test code = Aspartate Amino Transf (AST/SGOT)) 19 5-34 [facility] plasma alanine aminotransferase measurement (enzymatic activity/volume)2020-06-08 01:58:00* Test Item Value Reference Range Interpretation Comments Alanine Aminotransferase (ALT/SGPT) (test code = 1742-6) 40 0-55 [facility] plasma protein measurement (mass/volume)2020-06-08 01:58:00* Test Item Value Reference Range Interpretation Comments Total Protein (test code = 2885-2) 7.0 6.5-8.1 [facility] plasma albumin measurement (mass/volume)2020-06-08 01:58:00* Test Item Value Reference Range Interpretation Comments Albumin (test code = 1751-7) 4.1 3.5-5.[address] HospitalPlasma globulin measurement (mass/volume) 2020-06-08 01:58:00* Test Item Value Reference Range Interpretation Comments Globulin (test code = 48532-5) 2.9 2.3-3.5 [facility] plasma albumin/globulin mass ovcdr2128-15-51 01:58:00* Test Item Value Reference Range Interpretation Comments Albumin/Globulin Ratio (test code = 1759-0) 1.4 0.8-2.0 [facility] plasma alkaline phosphatase measurement (enzymatic activity/volume)2020-06-08 01:58:00* Test Item Value Reference Range Interpretation Comments Alkaline Phosphatase (test code = 6768-6) 75 40-150 [facility]erum or plasma creatine kinase measurement (enzymatic activity/volume)2020-06-08 01:58:00* Test Item Value Reference Range Interpretation Comments Creatine Kinase (test code = 2157-6) 143 30-200 [facility]erum or plasma creatine kinase MB measurement (mass/volume)2020-06-08 01:58:00* Test Item Value Reference Range Interpretation Comments Creatine Kinase MB (test code = 21808-1) < 1.00 0-4.3 [facility]um or plasma troponin i.cardiac measurement (mass/volume)2020-06-08 01:58:00* Test Item Value Reference Range Interpretation Comments Troponin I (test code = 21194-3) < 0.05 0.0-0.[address] HospitalBlood leukocytes automated count (number/volume)2020-06-08 01:58:00* Test Item Value Reference Range Interpretation Comments White Blood Count (test code = 6690-2) 7.61 4.8-10.[address] [facility] HospitalBlsleep[facility] erythrocytes automated count (number/volume)2020-06-08 01:58:00* Test Item Value Reference Range Interpretation Comments Red Blood Count (test code = 789-8) 4.71 4.3-5.[address] [facility] HospitalBlood hemoglobin measurement (moles/volume)2020-06-08 01:58:00* Test Item Value Reference Range Interpretation Comments Hemoglobin (test code = 77838-0) 14.1 14.0-18.[address] [facility] HospitalAutomated blood hematocrit (volume fraction)2020-06-08 01:58:00* Test Item Value Reference Range Interpretation Comments Hematocrit (test code = 4544-3) 40.6 38.2-49.[address] [facility] HospitalAutomated erythrocyte mean corpuscular wpgqto1438-28-01 01:58:00* Test Item Value Reference Range Interpretation Comments Mean Corpuscular Volume (test code = 787-2) 86.2 81-[address] [facility] HospitalAutomated erythrocyte mean corpuscular hemoglobin (mass per erythrocyte)2020-06-08 01:58:00* Test Item Value Reference Range Interpretation Comments Mean Corpuscular Hemoglobin (test code = 785-6) 29.9 28-[address] [facility] HospitalAutomated erythrocyte mean corpuscular hemoglobin concentration measurement (mass/volume)2020-06-08 01:58:00* Test Item Value Reference Range Interpretation Comments Mean Corpuscular Hemoglobin Concent (test code = 786-4) 34.7 31-[address] [facility] HospitalRDW ShxJi-Etw4668-26-02 01:58:00* Test Item Value Reference Range Interpretation Comments Red Cell Distribution Width (test code = 01822-1) 12.5 11.7 -14.[address] HospitalAutomated blood platelet count (count/volume)2020-06-08 01:58:00* Test Item Value Reference Range Interpretation Comments Platelet Count (test code = 777-3) 208 140-[address] [facility] HospitalAutcritical access hospitaled blood segmented neutrophil count as percentage of total vcmpbnvowk5808-49-59 01:58:00* Test Item Value Reference Range Interpretation Comments Neutrophils (%) (Auto) (test code = 02532-3) 46.5 38.7-80.[address] [facility] HospitalAutomated blood lymphocyte count as percentage ot total yrbeneegpw8581-99-01 01:58:00* Test Item Value Reference Range Interpretation Comments Lymphocytes (%) (Auto) (test code = 736-9) 43.8 18.0-39.[address] [facility] HospitalAutomated blood monocyte count as percentage of total cwfleieslw7688-75-16 01:58:00* Test Item Value Reference Range Interpretation Comments Monocytes (%) (Auto) (test code = 5905-5) 6.3 4.4-11.[address] [facility] HospitalAutom[facility] blood eosinophil count as percentage of total gvajxigbub9490-13-16 01:58:00* Test Item Value Reference Range Interpretation Comments Eosinophils (%) (Auto) (test code = 713-8) 2.4 0.0-6.[address] [facility] HospitalAutomated blood basophil count as percentage of total scxujqhxrf8707-41-48 01:58:00* Test Item Value Reference Range Interpretation Comments Basophils (%) (Auto) (test code = 706-2) 0.5 0.0-1.[address] [facility] HospitalFluoroscopic procedure less than one hour xrigjcie2701-83-41 01:58:00* Test Item Value Reference Range Interpretation Comments IM GRANULOCYTES % (test code = IM GRANULOCYTES %) 0.5 0.0- 1.[address] [facility] HospitalAutom[facility] blood neutrophil count 2020-06-08 01:58:00* Test Item Value Reference Range Interpretation Comments Neutrophils # (Auto) (test code = 751-8) 3.5 2.1-6.[address] HospitalBlood lymphocytes count (number/volume) 2020-06-08 01:58:00* Test Item Value Reference Range Interpretation Comments Lymphocytes # (Auto) (test code = 71227-3) 3.3 1.0-3.[address] HospitalBlood monocytes automated count (number/volume)2020-06-08 01:58:00* Test Item Value Reference Range Interpretation Comments Monocytes # (Auto) (test code = 742-7) 0.5 0.2-0.[address] [facility] HospitalAutom[facility] blood eosinophil count 2020-06-08 01:58:00* Test Item Value Reference Range Interpretation Comments Eosinophils # (Auto) (test code = 711-2) 0.2 0.0-0.[address] HospitalAutom[facility] blood basophil count (count/volume)2020-06-08 01:58:00* Test Item Value Reference Range Interpretation Comments Basophils # (Auto) (test code = 704-7) 0.0 0.0-0.[address] [facility] HospitalFluoroscopic procedure less than one hour rsoeutgf6525-88-23 01:58:00* Test Item Value Reference Range Interpretation Comments Absolute Immature Granulocyte (auto (filiberto t code = Absolute Immature Granulocyte (auto) 0.04 0-0.1 [facility] plasma sodium measurement (moles/volume)2020-06-08 01:58:00* Test Item Value Reference Range Interpretation Comments Sodium Level (test code = 2951-2) 142 136-145 [facility] plasma potassium measurement (moles/volume)2020-06-08 01:58:00* Test Item Value Reference Range Interpretation Comments Potassium Level (test code = 2823-3) 3.6 3.5-5.1 [facility] plasma chloride measurement (moles/volume)2020-06-08 01:58:00* Test Item Value Reference Range Interpretation Comments Chloride Level (test code = 2075-0) 110 98-107 [facility]um or plasma carbon dioxide, total measurement (moles/volume)2020-06-08 01:58:00* Test Item Value Reference Range Interpretation Comments Carbon Dioxide Level (test code = 2028-9) 19 22-29 [facility]um or plasma anion coy9126-52-17 01:58:00* Test Item Value Reference Range Interpretation Comments Anion Gap (test code = 76739-0) 16.6 8-16 [facility] plasma urea nitrogen measurement (mass/volume)2020-06-08 01:58:00* Test Item Value Reference Range Interpretation Comments Blood Urea Nitrogen (test code = 3094-0) 17 7-26 [facility] plasma creatinine measurement (mass/volume)2020-06-08 01:58:00* Test Item Value Reference Range Interpretation Comments Creatinine (test code = 2160-0) 0.94 0.72-1.25 [facility] or plasma urea nitrogen/creatinine mass pgbun2267-45-22 01:58:00* Test Item Value Reference Range Interpretation Comments BUN/Creatinine Ratio (test code = 3097-3) 18 6-[address] [facility] HospitalEstimated glomerular filtration rate (GFR) hwpwhdpxqmutm0041-86-77 01:58:00* Test Item Value Reference Range Interpretation Comments Estimat Glomerular Filtration Rate (test code = 970971340) > 60 >60 Ranges were taken from the National Kidney Disease Education Program and the [place] [facility] literature.Reference ranges:60 or greater: Eejwhb21-29 ( for 3 consecutive months): Chronic kidney disease 15 or less: [address] HospitalGlucose ktvjvytyfzs9184-07-69 01:58:00* Test Item Value Reference Range Interpretation Comments Glucose Level (test code = JHQ5227) 104 74-118 [facility] calcium measurement (mass/volume)2020-06-08 01:58:00* Test Item Value Reference Range Interpretation Comments Calcium Level (test code = 26995-8) 8.6 8.4-10.2 [facility] magnesium measurement (mass/volume)2020-06-08 01:58:00* Test Item Value Reference Range Interpretation Comments Magnesium Level (test code = 68426-3) 2.1 1.3-2.1 [facility] total bilirubin measurement (mass/volume)2020-06-08 01:58:00* Test Item Value Reference Range Interpretation Comments Total Bilirubin (test code = 1975-2) 0.6 0.2-1.[address] [facility] HospitalFluoroscopic procedure less than one hour [id number] 01:58:00* Test Item Value Reference Range Interpretation Comments Aspartate Amino Transf (AST/SGOT) (test code = Aspartate Amino Transf (AST/SGOT)) 19 5-34 [facility] alanine aminotransferase measurement (enzymatic activity/volume)2020-06-08 01:58:00* Test Item Value Reference Range Interpretation Comments Alanine Aminotransferase (ALT/SGPT) (test code = 1742-6) 40 0-55 [facility] protein measurement (mass/volume)2020-06-08 01:58:00* Test Item Value Reference Range Interpretation Comments Total Protein (test code = 2885-2) 7.0 6.5-8.1 [facility] albumin measurement (mass/volume)2020-06-08 01:58:00* Test Item Value Reference Range Interpretation Comments Albumin (test code = 1751-7) 4.1 3.5-5.[address] [facility] HospitalPlasma globulin measurement (mass/volume) 2020-06-08 01:58:00* Test Item Value Reference Range Interpretation Comments Globulin (test code = 54523-9) 2.9 2.3-3.5 [facility] albumin/globulin mass [id number] 01:58:00* Test Item Value Reference Range Interpretation Comments Albumin/Globulin Ratio (test code = 1759-0) 1.4 0.8-2.0 [facility] alkaline phosphatase measurement (enzymatic activity/volume)2020-06-08 01:58:00* Test Item Value Reference Range Interpretation Comments Alkaline Phosphatase (test code = 6768-6) 75 40-150 [facility] creatine kinase measurement (enzymatic activity/volume)2020-06-08 01:58:00* Test Item Value Reference Range Interpretation Comments Creatine Kinase (test code = 2157-6) 143 30-200 [facility] creatine kinase MB measurement (mass/volume)2020-06-08 01:58:00* Test Item Value Reference Range Interpretation Comments Creatine Kinase MB (test code = 88038-0) < 1.00 0-4.3 [facility] troponin i.cardiac measurement (mass/volume)2020-06-08 01:58:00* Test Item Value Reference Range Interpretation Comments Troponin I (test code = 47133-0) < 0.05 0.0-0.[address] [address] HospitalBASIC METABOLIC [id number] 00:30:00 * Test Item Value Reference Range [...] code = CA) 8.9 mg/dL 8.5-10.1 N [id number] 00:30:00* Test Item Value Reference Range Interpretation Comments TROPONIN-I (test code = TROPI) <0.015 ng/mL 0-0.045 N BASIC METABOLIC [id number] 00:26:00* Test Item Value Reference Range Interpretation [...] CALCIUM (test code = CA) mg/dL 8.5-10.1 [id number] 00:26:00* Test Item Value Reference Range Interpretation Comments TROPONIN-I (test code = TROPI) ng/mL 0-0.045 CBC W/O [id number] 23:56:00* Test Item Value Reference Range Interpretation [...] MPV) 12.1 fL 6.7-11.0 H CBC W/O [id number] 23:54:00* Test Item Value Reference Range Interpretation [...] MPV) fL 6.7-11.0 - XR CHEST 1 [id number] 23:35:00 FAX: Jamie Brady MD [phone] [place]: B St: REG Name: SANYA MONTAGUE [facility] : [birth year] Age/S: 29/M [address] Unit #: [id number] Loc: [place], [place] [address] Phys: Jamie Brady MD Acct: [id number] Dis Date: Status: REG ER PHONE #: [phone] Exam Date: 06/01/2020 2327 FAX #: [phone] Reason: CHEST PAIN EXAMS: CPT CODE: [id number] XR CHEST 1 V 78050 Examination: One view chest x-ray Location code: [...] by Gamal Grubbs M.D. on 06/01 at 2339 Reported and signed by: Gamal Grubbs M.D. CC: Jamie Brady MD T echnologist: RT IMMANUEL Trnscrd Date /Time/By: 06/01/2020 (4225) : By: [email or web address] Orig Print D/T: S: 020 (2778) PAGE 1 Signed Report BASIC METABOLIC [id number] 22:35:00* Test Item Value Reference Range Interpretation [...] CA) 8.8 mg/dL 8.5-10.1 N HEPATIC FUNCTION [id number] 22:35:00* Test Item Value Reference Range Interpretation [...] reference range due to change in reagent. [id number] 22:35:00* Test Item Value Reference Range Interpretation Comments LIPASE (test code = LIP) 189 U/L 73.0-393.0 N BASIC METABOLIC [id number] 22:25:00* Test Item Value Reference Range Interpretation [...] code = CA) mg/dL 8.5-10.1 HEPATIC FUNCTION [id number] 22:25:00* Test Item Value Reference Range Interpretation [...] TOTAL (test code = ALKP) IUnit/L 45-117 [id number] 22:25:00* Test Item Value Reference Range Interpretation Comments LIPASE (test code = LIP) U/L 73.0-393.0 CBC W/O [id number] 22:09:00* Test Item Value Reference Range Interpretation [...] code = MPV) fL 6.7-11.0 CBC W/O [id number] 22:09:00* Test Item Value Reference Range Interpretation [...] fL 6.7-11.0 H - CT ABD PELVIS [id number] 22:05:00 Name: SANYA KABA [facility] : 1990 Age/S: 29 / M [address] [facility] Unit #: [id number] Loc: [place] [address] Phys: Brian Page MD Acct: [id number] Dis Date: Status: REG ER PHONE #: [phone] Exam Date: 05/23/2020 2200 FAX #: [phone] Reason: abd pain and bloating after endoscopy EXAMS: CPT CODE: [id number] CT ABD PELVIS W/CONT 29468 REASON FOR EXAM: abd pain and bloating after endoscopy EXAM ORDER DATE: 05/23/2020 9:36 PM Ordering: Brian Page MD Attending:Brian Page MD [facility] PROCEDURE: - CT ABD [...] 1 Signed Report (CONTINUED) Name: SANYA KABA [facility] : 1990 Age/S: 29 / M [address] Unit #: [id number] Loc: [place] [address] Phys: Brian Page MD Acct: [id number] Dis Date: Stat us: REG ER PHONE #: [phone] Exam Date: 05/23/20202199 FAX #: [phone] Reason: abd pain and bloating after endoscopy EXAMS: CPT CODE: [id number] CT ABD PELVIS W/CONT 84579 <Continued> CC: Brian Page MD Technologist:Chey Kaye RT(R); SAMIR Cotton CTDI: DLP: Trnscb Date/Time: 05/23/2020 (2204) [email or web address] Orig Print D/T: S: 05/23/2020 (2207) PAGE 2 Signed Report - XR CHEST 1 [id number] 21:37:00 FAX: Brian England [phone] [place]: B St: REG Name: SANYA MONTAGUE [facility] : [birth year] Age/S: 29/M [address] Unit #: [id number] Loc: [place] [address] Phys: Brian Page Acct: [id number] Dis Date: Status: REG ER PHONE #: [phone] Exam Date: 05/23/20202134 FAX #: [phone] Reason: ABDOMINAL PAIN EXAMS: CPT CODE: [id number] XR CHEST 1 V 31731 REASON FOR EXAM: ABDOMINAL PAIN EXAM ORDER DATE: 05/23/2020 9:16 PM Ordering: Sergio Page MD Attending:Brian Page MD [facility] PROCEDURE: - XR CHEST [...] (2139) PAGE 1 Signed Report BASIC METABOLIC [id number] 22:01:00* Test Item Value Reference Range Interpretation [...] CA) 8.5 mg/dL 8.5-10.1 N HEPATIC FUNCTION [id number] 22:01:00* Test Item Value Reference Range Interpretation [...] reference range due to change in reagent. [id number] 22:01:00* Test Item Value Reference Range Interpretation Comments LIPASE (test code = LIP) 167 U/L 73.0-393.0 N BASIC METABOLIC [id number] 21:54:00* Test Item Value Reference Range Interpretation [...] code = CA) mg/dL 8.5-10.1 HEPATIC FUNCTION [id number] 21:54:00* Test Item Value Reference Range Interpretation [...] TOTAL (test code = ALKP) IUnit/L 45-117 [id number] 21:54:00* Test Item Value Reference Range Interpretation Comments LIPASE (test code = LIP) U/L 73.0-393.0 CBC W/O [id number] 21:51:00* Test Item Value Reference Range Interpretation [...] MPV) 12.0 fL 6.7-11.0 H CBC W/O [id number] 21:49:00* Test Item Value Reference Range Interpretation [...] MPV) fL 6.7-11.0 - CT HEAD/BRAIN W/O [id number] 13:44:00 Name: SANYA KABA [facility] : 1990 Age/S: 29 / M [address] [facility] Unit #: [id number] Loc: [place] [address] Phys: Sandrita Hernandez NP Acct: [id number] Dis Date: Status: REG ER PHONE #: [phone] Exam Date: 05/21/2020 1315 FAX #: [phone] Reason: headache, dizzines EXAMS: CPT CODE: [id number] CT HEAD/BRAIN W/O CONT 14679 HISTORY: headache, dizzines TECHNIQUE: Noncontrast 2.5 mm [...] unremarkable. IMPRESSION: Negative CT head. Location: [facility] at 1344 Reported and signed by: Carlos Stoner MD CC: Sandrita Hernandez NP Technologist:Clementina Palomino RT(R),CT CTDI: DLP: Trn scb Date/Time: 05/21/2020 (1344) [email or web address] Orig Print D/T : S: 05/21/2020 (4291) PAGE 1 Signed Report COMPREHENSIVE METABOLIC [id number] 13:34:00* Test Item Value Reference Range Interpretation [...] due to change in reagent. COMPREHENSIVE METABOLIC [id number] 13:26:00* Test Item Value Reference Range Interpretation [...] code = ALKP) IUnit/L 45-117 CBC W/AUTO [id number] 13:15:00* Test Item Value Reference Range Interpretation [...] = NRBC#) 0.00 K/mm3 0.0-0.1 N URINALYSIS [id number] 19:53:00* Test Item Value Reference Range Interpretation [...] Urine Source? Clean CatchDRUGS OF ABUSE SCREEN [id number] 19:53:00* Test Item Value Reference Range Interpretation [...] NEGATIVE <300 ng/mL Urine Source? Clean CatchURINALYSIS [id number] 19:28:00* Test Item Value Reference Range Interpretation [...] Urine Source? Clean CatchDRUGS OF ABUSE SCREEN [id number] 19:28:00* Test Item Value Reference Range Interpretation [...] [place]) <300 ng/mL Urine Source? Clean CatchURINALYSIS [id number] 19:26:00* Test Item Value Reference Range Interpretation [...] Urine Source? Clean CatchDRUGS OF ABUSE SCREEN [id number] 19:26:00* Test Item Value Reference Range Interpretation [...] <300 ng/mL Urine Source? Clean CatchBASIC METABOLIC [id number] 19:14:00* Test Item Value Reference Range Interpretation [...] CA) 8.8 mg/dL 8.5-10.1 N HEPATIC FUNCTION [id number] 19:14:00* Test Item Value Reference Range Interpretation [...] reference range due to change in reagent. [id number] 19:14:00* Test Item Value Reference Range Interpretation Comments LIPASE (test code = LIP) 177 U/L 73.0-393.0 N [id number] 19:14:00* Test Item Value Reference Range Interpretation Comments TROPONIN-I (test code = TROPI) <0.015 ng/mL 0-0.045 N BASIC METABOLIC [id number] 19:08:00* Test Item Value Reference Range Interpretation [...] code = CA) mg/dL 8.5-10.1 HEPATIC FUNCTION [id number] 19:08:00* Test Item Value Reference Range Interpretation [...] TOTAL (test code = ALKP) IUnit/L 45-117 [id number] 19:08:00* Test Item Value Reference Range Interpretation Comments LIPASE (test code = LIP) U/L 73.0-393.0 [id number] 19:08:00* Test Item Value Reference Range Interpretation Comments TROPONIN-I (test code = TROPI) ng/mL 0-0.045 CBC W/O [id number] 18:52:00* Test Item Value Reference Range Interpretation [...] MPV) 12.0 fL 6.7-11.0 H CBC W/O [id number] 18:49:00* Test Item Value Reference Range Interpretation [...] = MPV) fL 6.7-11.0 - US ABDOMEN [id number] 18:33:00 Name: SANYA KABA [facility] : 1990 Age/S: 29 / M [address] [facility] Unit #: [id number] Loc: [place] [address] Phys: Ascencion Whitney RECORDIST CHIEF Acct: [id number] Dis Date: Status: REG ER PHONE #: [phone] Exam Date: 05/20/20202 FAX #: [phone] Reason: Abdominal Pain EXAMS: CPT CODE: [id number] US ABDOMEN LTD 30024 REASON FOR EXAM: Abdominal Pain EXAM ORDER [...] 1 Signed Report (CONTINUED) Name: SANYA HERNANDEZ [facility] : 1990 Age/S: 29 / M [address] [facility] Unit #: [id number] L oc: [place] [address] Phys: Ascencion Whitney NP Acct: [id number] Dis Date: Status: REG ER PHONE #: [phone] Exam Date: 05/20/2020 181 FAX #: [phone] [place] son: Abdominal Pain EXAMS: CPT CODE: [id number] US ABDOMEN LTD 25526 <Continued> stones: none cysts/masses: none hydronephrosis: none Ascites/pleural effusions: None IMPRESSION: Hepatomegaly with hepatic steatosis. Focal sparing at the gallbladder fossa. Location: [facility] at 1833 Reported and signed by: Carlos Stoner MD CC: Ascencion Whitney NP Technologist: Enrico Soliman Trnazb Date/Time: 05/20/2020 (1833) [email or web address] Orig Print D/T: S: 05/20/2020 (183) Probe: PAGE 2 Signed Report - XR CHEST 1 [id number] 18:06:00 FAX: Ascencion Whitney [phone] [place]: St: REG Name: SANYA MONTAGUE [facility] : [birth year] Age/S: 29/M [address] [facility] Unit #: [id number] [place] [address] Phys: Ascencion Whitney NP Acct: [id number] Dis Date: Status: REG ER PHONE #: [phone] Exam Date: 05/20/20201748 FAX #: [phone] Reason: EPIGASTRIC PAIN EXAMS: CPT CODE: [id number] XR CHEST 1 V 59416 REASON FOR EXAM: EPIGASTRI C PAIN Exam Order Date: 05/20/2020 5:37 PM Ordering M .Tho: Ascencion Whitney NP PROCEDURE: - XR CHEST [...] IMPRESSION: No acute cardiopulmonary process. Location: [facility] at 1806 Reported and signed by: Carlos Stoner MD CC: Ascencion Whitney NP Technologist: TI LORENZ Trnseth Date/Time/By: 05/20/2020 (180) : By: Jaren KingstonRR31 Orig Print D/T: S: 05/20/2020 (1809) PAGE 1 Signed Report
== END 2020-06-16 22:14 | disposition home or self-care (01) ==
LOC: ER 21:58
DX: T78.40XA Allergy, unspecified, initial encounter (principal); T36.8X5A Adverse effect of other systemic antibiotics, initial encounter; I10 Essential (primary) hypertension; E78.5 Hyperlipidemia, unspecified
CPT/HCPCS: 99282; J8540

== ENCOUNTER 2020-06-24 16:46 | Emergency (ER) | payer SELFPAY ==
[2020-06-24 18:09] LABS: BASOPHILS % 0.5 % (0.0-1.0); EOSINOPHILS # (AUTO) 0.2 (0.0-0.4); EOSINOPHILS % 2.3 % (0.0-6.0); HEMATOCRIT 41.3 % (38.2-49.6); HEMOGLOBIN 14.5 g/dL (14.0-18.0); LYMPHOCYTES # (AUTO) 2.2 (1.0-3.2); MEAN CORPUSCULAR HEMOGLOBIN 30.7 pg (28-32); MEAN CORPUSCULAR HGB CONC 35.1 g/dL (31-35); MEAN CORPUSCULAR VOLUME 87.3 fL (81-99); MONOCYTES # (AUTO) 0.3 (0.2-0.8); MONOCYTES % 5.1 % (4.4-11.3); NEUTROPHILS # (AUTO) 3.9 (2.1-6.9); NEUTROPHILS % 58.6 % (38.7-80.0); PLATELET COUNT 225 x10e3/uL (140-360); RED BLOOD COUNT 4.73 x10e6/uL (4.3-5.7); RED CELL DISTRIBUTION WIDTH 12.4 % (11.7-14.4)
--- NOTE | 2020-06-24 18:10 | Emergency Department Note ---
History of Present Illnes History of Present Illness Chief Complaint: Chest Pain History of Present Illness This is a 29 year old male CHEST PAIN X 3 DAYS, PT STATES THAT HE RECENTLY FOUND OUT THAT HE WAS HYPERTENSIVE, PT STATES THAT THEY CHANGED HIS LISINOPRIL TO AMLODIPINE AND FROM THAT TO HCTZ, PT DESCRIBES THE PAIN PRESSURE LIKE PAIN WITH SHARP PAIN TO THE LEFT SHOULDER BLADE PAIN IS CONSTANT FOR PAST 3 DAYS. Historian: Patient Arrival Mode: Car Audio Visual Design Engineer Required: No Onset (how long ago): day(s) (3) Location: LEFT CHEST/SHOULDER Quality: PAIN Radiation: Reports non-radiation Severity: moderate Onset quality: gradual Duration (how long): day(s) (3) Timing of current episode: constant Progression: unchanged Chronicity: new Context: Denies recent illness, Denies recent surgery, Denies trauma/injury Relieving factors: none Exacerbating factors: movement Associated symptoms: Reports denies other symptoms Past Medical/Family History Physician Review I have reviewed the patient's past medical and family history. Any updates have been documented here. Past Medical History Recent Fever: No Clinical Suspicion of Infectio: No New/Unexplained Change in Ment: No Past Medical History: Hypertension, Diabetes, GERD Other Medical History: GASTRITIS IRON DEFICIENCY Past Surgical History: None Other Surgery: I&D RIGHT LEG ABSCESS Social History Smoking Cessation: Never Smoker Counseling Performed: No Alcohol Use: None Any Illegal Drug Use: No Other Any Pre-Existing Lines (PICC,: No Review of Systems Review of Systems Constitutional: Reports no symptoms EENTM: Reports no symptoms Cardiovascular: Reports as per HPI Respiratory: Reports no symptoms Gastrointestinal: Reports no symptoms Genitourinary: Reports no symptoms Musculoskeletal: Reports no symptoms Integumentary: Reports no symptoms Neurological: Reports no symptoms Psychological: Reports no symptoms Endocrine: Reports no symptoms Hematological/Lymphatic: Reports no symptoms Physical Exam Related Data Allergies: Coded Allergies: clindamycin (Verified Allergy, Unknown, 06/24/20) lisinopril (Verified Allergy, Unknown, 06/24/20) Triage Vital Signs Vital Signs Date Time Temp Pulse Resp B/P (MAP) Pulse Ox O2 Delivery O2 Flow Rate FiO2 06/24/20 17:33 98.5 77 22 123/87 98 Room Air Vital signs reviewed: Yes Physical Exam CONSTITUTIONAL Constitutional: Present well-developed, Present well-nourished HENT HENT: Present normocephalic, Present atraumatic, Present oropharynx clear/moist, Present nose normal HENT L/R: Present left ext ear normal, Present right ext ear normal EYES Eyes: Reports PERRL, Reports conjunctivae normal NECK Neck: Present ROM normal PULMONARY Pulmonary: Present effort normal, Present breath sounds normal CARDIOVASCULAR Cardiovascular: Present regular rhythm, Present heart sounds normal, Present capillary refill normal, Present normal rate GASTROINTESTINAL Abdominal: Present soft, Present nontender, Present bowel sounds normal GENITOURINARY Genitourinary: Present exam deferred SKIN Skin: Present warm, Present dry MUSCULOSKELETAL Musculoskeletal: Present ROM normal NEUROLOGICAL Neurological: Present alert, Present oriented x 3, Present no gross motor or sensory deficits PSYCHOLOGICAL Psychological: Present mood/affect normal, Present judgement normal Results Laboratory Laboratory Laboratory Tests Test 06/24/20 16:56 White Blood Count 6.66 x10e3/uL (4.8-10.8) Red Blood Count 4.73 x10e6/uL (4.3-5.7) Hemoglobin 14.5 g/dL (14.0-18.0) Hematocrit 41.3 % (38.2-49.6) Mean Corpuscular Volume 87.3 fL (81-99) Mean Corpuscular Hemoglobin 30.7 pg (28-32) Mean Corpuscular Hemoglobin Concent 35.1 g/dL (31-35) Red Cell Distribution Width 12.4 % (11.7-14.4) Platelet Count 225 x10e3/uL (140-360) Neutrophils (%) (Auto) 58.6 % (38.7-80.0) Lymphocytes (%) (Auto) 33.0 % (18.0-39.1) Monocytes (%) (Auto) 5.1 % (4.4-11.3) Eosinophils (%) (Auto) 2.3 % (0.0-6.0) Basophils (%) (Auto) 0.5 % (0.0-1.0) Neutrophils # (Auto) 3.9 (2.1-6.9) Lymphocytes # (Auto) 2.2 (1.0-3.2) Monocytes # (Auto) 0.3 (0.2-0.8) Eosinophils # (Auto) 0.2 (0.0-0.4) Basophils # (Auto) 0.0 (0.0-0.1) Absolute Immature Granulocyte (auto 0.03 x10e3/uL (0-0.1) D-Dimer Quantitative (PE/DVT) 0.43 ug/mLFEU (0.00-0.45) Sodium Level 140 mmol/L (136-145) Potassium Level 4.0 mmol/L (3.5-5.1) Chloride Level 107 mmol/L (98-107) Carbon Dioxide Level 18 mmol/L (22-29) Anion Gap 19.0 mmol/L (8-16) Blood Urea Nitrogen 10 mg/dL (7-26) Creatinine 1.02 mg/dL (0.72-1.25) Estimat Glomerular Filtration Rate > 60 ML/MIN (60-) BUN/Creatinine Ratio 10 (6-25) Glucose Level 164 mg/dL (74-118) Calcium Level 8.9 mg/dL (8.4-10.2) Total Bilirubin 0.5 mg/dL (0.2-1.2) Aspartate Amino Transf (AST/SGOT) 21 IU/L (5-34) Alanine Aminotransferase (ALT/SGPT) 44 IU/L (0-55) Alkaline Phosphatase 96 IU/L (40-150) Creatine Kinase 102 IU/L (30-200) Creatine Kinase MB 0.90 ng/mL (0-5.0) Troponin I 0.001 ng/mL (0-0.300) Total Protein 7.6 g/dL (6.5-8.1) Albumin 4.1 g/dL (3.5-5.0) Globulin 3.5 g/dL (2.3-3.5) Albumin/Globulin Ratio 1.2 (0.8-2.0) Amylase Level 47 U/L (25-125) Lipase 46 U/L (8-78) Laboratory Tests Test 06/24/20 16:56 Imaging Imaging results reviewed: Yes Impressions Procedure: [id number] DX/CHEST SINGLE (PORTABLE) Exam Date: 06/24/20 Exam Time: 1829 REPORT STATUS: Signed Examination: Single AP view of the chest. COMPARISON: None. INDICATION: Chest pain radiating to left shoulder, hypertension IMPRESSION: 1. Lines and Tubes: None 2. Lungs are grossly clear. No consolidation or effusion. 3. Cardiomediastinal silhouette is normal. Pulmonary vasculature is normal. 4. No acute bony abnormalities. Signed by: Dr. Steve Manriquez M.D. on 06/24/2020 6:52 PM Dictated By: STEVE MANRIQUEZ MD 51 Transcribed By: CONNIE on 06/24/201851 COPY TO: ANGIE GARY MD~ Procedures 12 Lead ECG Interpretation ECG Interpretation : ECG: ECG 1 Audio Visual Design Engineer: Interpreted by ED physician Date: Jun 24, 2020 Time: 16:56 Rhythm: sinus rhythm Rate: normal BPM: 79 QRS axis: normal ST segments normal: Yes T waves normal: Yes Other findings: no other findings Clinical Impression: normal ECG Assessment & Plan Medical Decision Making MDM PT WITH CHEST PAIN CBC,CMP, EKG, CARDIAC ENZYMES, CXR D-DIMER ORDERED TO EVAL FOR MYOCARDIAL INFARCTION,ELECTROLYTE ABNORMALITY, PNEUMONIA, PULMONARY EMBOLISM Assessment & Plan Final Impression: (1) Non-cardiac chest pain Depart Disposition: HOME, SELF-CARE Last Vital Signs Date Time Temp Pulse Resp B/P (MAP) Pulse Ox O2 Delivery O2 Flow Rate FiO2 06/24/20 17:33 98.5 77 22 123/87 98 Room Air ANGIE GARY MD Jun 24, 2020 18:09
[2020-06-24 18:30] LABS: ALANINE AMINOTRANSFERASE 44 IU/L (0-55); ALBUMIN 4.1 g/dL (3.5-5.0); ALBUMIN/GLOBULIN RATIO 1.2 (0.8-2.0); ALKALINE PHOSPHATASE 96 IU/L (40-150); BLOOD UREA NITROGEN 10 mg/dL (7-26); BUN/CREATININE RATIO 10 (6-25); CALCIUM 8.9 mg/dL (8.4-10.2); CARBON DIOXIDE 18 mmol/L (22-29); CHLORIDE 107 mmol/L (98-107); CREATINE KINASE 102 IU/L (30-200); CREATININE, SERUM 1.02 mg/dL (0.72-1.25); EST GLOMERULAR FILTRATION RATE > 60 ML/MIN (60-); GLUCOSE 164 mg/dL (74-118); SODIUM 140 mmol/L (136-145)
[2020-06-24 18:31] LABS: AMYLASE 47 U/L (25-125); LIPASE 46 U/L (8-78)
--- NOTE | 2020-06-24 18:55 | Diagnostic Imaging Report ---
Examination: Single AP view of the chest. COMPARISON: None. INDICATION: Chest pain radiating to left shoulder, hypertension IMPRESSION: 1. Lines and Tubes: None 2. Lungs are grossly clear. No consolidation or effusion. 3. Cardiomediastinal silhouette is normal. Pulmonary vasculature is normal. 4. No acute bony abnormalities. Signed by: Dr. Stephen Morataya M.D. on 06/24/2020 6:52 PM
== END 2020-06-24 20:20 | disposition home or self-care (01) ==
LOC: ER 17:05
DX: R07.89 Other chest pain (principal); I10 Essential (primary) hypertension; E11.9 Type 2 diabetes mellitus without complications; K21.9 Gastro-esophageal reflux disease without esophagitis
CPT/HCPCS: 36415; 71045; 80053; 82150; 82550; 82553; 83690; 84484; 85025; 85379; 93005; 99284

== ENCOUNTER → 2020-11-09 | Day surgery (SDC) | payer OTHER ==
[~2020-11-09] MED LIST: AMLODIPINE BESY10 MG PO; ATORVASTATIN CA20 MG PO; HYDROCHLOROTHIA25 MG PO; METFORMIN HCL500 MG PO
[2020-11-09 11:20] VITALS: BP 113/82
== END | disposition home or self-care (01) ==
LOC: ENDO 13:09
PROVIDERS: ATTEND Internal Medicine Gastroenterology
DX: K20.90 Esophagitis, unspecified without bleeding (principal); K29.70 Gastritis, unspecified, without bleeding; K31.89 Other diseases of stomach and duodenum; K21.9 Gastro-esophageal reflux disease without esophagitis; K75.81 Nonalcoholic steatohepatitis (NASH); E11.9 Type 2 diabetes mellitus without complications; I10 Essential (primary) hypertension; E78.5 Hyperlipidemia, unspecified; R00.1 Bradycardia, unspecified; Z88.1 Allergy status to other antibiotic agents; Z88.8 Allergy status to other drugs, medicaments and biological substances; Z01.810 Encounter for preprocedural cardiovascular examination; Z01.812 Encounter for preprocedural laboratory examination; Z20.822 Contact with and (suspected) exposure to COVID-19; Z79.84 Long term (current) use of oral hypoglycemic drugs
CPT/HCPCS: 36415; 43239; 43450; 82948; 93005; U0002